=== PATIENT | female | born 1950 | race Caucasian/White ===

== ENCOUNTER → 2017-06-21 | Outpatient (CLI) | payer MEDICARE, OTHER ==
[2015-11-18 16:25] VITALS: BP 162/100
[~2017-06-21] MED LIST: CANA300T PO; COLE625T12 PO; HYDR-2678 PO; HYDR-2758 PO; LEVO150T5 PO; LISI40TA PO; NEBI10TA3 PO; ONDA4TAB10; TIZA4TAB PO
--- NOTE | 2017-06-21 12:08 | RAD ---
Bilateral lower extremity venous ultrasound, 06/21/2017: History: Bilateral leg edema Duplex evaluation of the deep veins in the lower extremities was performed including grayscale, color-flow and spectral Doppler analysis. The femoral and popliteal veins demonstrate normal compressibility and normal responses to distal augmentation maneuvers. Color imaging of those vessels shows no evidence of intraluminal clot. The visualized deep veins in both calves are patent. IMPRESSION: There is no sonographic evidence of deep vein thrombosis in either lower extremity.
--- NOTE | 2017-06-21 14:59 | RAD ---
Bilateral lower extremity arterial ultrasound, 06/21/2017: History: Leg pain and edema Duplex evaluation of the major arteries in both lower extremities was performed including grayscale, color-flow and spectral Doppler analysis. The right common femoral, superficial femoral and popliteal arteries demonstrate triphasic Doppler waveforms. No significant velocity acceleration is seen in these regions to suggest high-grade stenosis. No prominent plaque formation is identified. Patent posterior tibial, anterior tibial and peroneal arteries are present in the right lower leg demonstrating triphasic Doppler waveforms. The right dorsalis pedis artery demonstrates a good amplitude biphasic Doppler waveform. On the left, the common femoral and superficial femoral arteries demonstrate triphasic Doppler waveforms. No prominent plaque formation or velocity acceleration is seen in the left femoral or popliteal arteries. The left popliteal Doppler waveform is monophasic. In the left lower leg the posterior tibial artery is patent demonstrating a biphasic Doppler waveform. The left peroneal artery is patent with a monophasic Doppler waveform. The left anterior tibial and dorsalis pedis arteries are patent with good triphasic Doppler waveforms. IMPRESSION: No duplex evidence of high-grade arterial stenosis in either lower extremity.
== END | disposition home or self-care (01) ==
LOC: US 09:58
PROVIDERS: ATTEND Nurse Practitioner Adult Health
DX: I87.2 Venous insufficiency (chronic) (peripheral) (principal); M79.605 Pain in left leg; M79.604 Pain in right leg; R60.0 Localized edema; I10 Essential (primary) hypertension; E11.9 Type 2 diabetes mellitus without complications; E78.5 Hyperlipidemia, unspecified; E78.00 Pure hypercholesterolemia, unspecified
CPT/HCPCS: 93925; 93970

== ENCOUNTER 2018-05-28 10:08 | Inpatient (IN) | payer MEDICARE, OTHER ==
[~2018-05-28] VITALS: Ht 172.7 cm; Wt 111.8 kg
[2018-05-28] VITALS (16 sets, daily range): BP systolic 121–219; BP diastolic 58–78
[~2018-05-28 10:08] MED LIST changes: +HYDR-2155 PO; -HYDR-2758 PO
[2018-05-28] MEDS ORDERED: DEXTROSE 50% 25 GM / 50ML DISP.SYRIN. IV PRN (12:15)
[2018-05-28 12:26] LABS: BASO % 0 % (0-3); EOS # 0.1 x10^3/uL (0.0-0.7); EOS % 1 % (0-3); HEMATOCRIT 39.8 % (36.0-47.0); HEMOGLOBIN 13.6 g/dL (12.0-15.5); LYMPH # 1.4 x10^3/uL (1.0-4.8); LYMPH % 19 % (24-48); MEAN CORPUSCULAR HEMOGLOBIN 32 pg (25-35); MEAN CORPUSCULAR HGB CONC 34 g/dL (31-37); MEAN CORPUSCULAR VOLUME 93 fL (79-100); MONO # 0.5 x10^3/uL (0.0-1.1); MONO % 7 % (0-9); NEUT # 5.1 x10^3uL (1.8-7.7); NEUT % 73 % (31-73); PLATELET COUNT 162 x10^3/uL (140-400); RED BLOOD COUNT 4.27 x10^6/uL (3.50-5.40); RED CELL DISTRIBUTION WIDTH 12.3 % (11.5-14.5); WHITE BLOOD COUNT 7.1 x10^3/uL (4.0-11.0)
[2018-05-28 12:41] LABS: ALBUMIN 3.8 g/dL (3.4-5.0); ALBUMIN/GLOBULIN RATIO 0.9 (1.0-1.7); CALCIUM 9.7 mg/dL (8.5-10.1); CREATININE 0.8 mg/dL (0.6-1.0); GFR 71.3; TOTAL BILIRUBIN 0.4 mg/dL (0.2-1.0); TOTAL PROTEIN 7.9 g/dL (6.4-8.2)
[2018-05-28] MEDS ORDERED: VANCOMYCIN 2 GM in IV NORMAL SALINE 500ML 500 ML IV ONE (12:45)
[2018-05-28] MEDS ORDERED: HYDR-2145 PO (13:31)
[2018-05-28] MEDS ORDERED: LEVO150T5 PO (13:31)
[2018-05-28] MEDS: MINERAL OIL/PETROLATUM TOPICAL CREAM 113GM JAR. TP SCH ×2 (13:52→22:32)
[2018-05-28] MEDS: CLOTRIMAZOLE 1% TOPICAL CREAM 30GM TUBE. TP SCH ×2 (13:52→22:31)
[2018-05-28] MEDS: VANCOMYCIN PER PHARMACY MC PRN (14:03)
[2018-05-28 14:10] LABS: CLARITY,URINE HAZY; COLOR,URINE YELLOW
[2018-05-28 14:11] LABS: BACTERIA,URINE FEW /HPF (0-FEW); BILIRUBIN,URINE NEG (NEG); GLUCOSE,URINE >=1000 mg/dL (NEG); NITRITE,URINE NEG (NEG); SQUAMOUS EPITHELIAL CELL,UR FEW /LPF; UROBILINOGEN,URINE 0.2 mg/dL (0.2 mg/dL)
[2018-05-28] MEDS ORDERED: HYDROcodone/APAP 5/325MG 1 TAB TABLET PO PRN (14:30)
[2018-05-28] MEDS: HYDROcodone/APAP 5/325MG 1 TAB TABLET PO PRN ×3 (14:55→22:30)
[2018-05-28] MEDS: diphenhydrAMINE 50 MG/ML VIAL IVP PRN (15:36)
[2018-05-28] MEDS ORDERED: HYDROCODONE PO PRN (18:00)
[2018-05-28] MEDS ORDERED: ACETAMINOPHEN PO PRN (18:00)
[2018-05-28] MEDS ORDERED: ONDANSETRON ODT 4 MG TAB.RAPDIS PO PRN (18:30)
[2018-05-28] MEDS: INSULIN LISPRO 300 UNITS/3 ML INSULN.PEN. SQ SCH (18:42)
[2018-05-28] MEDS ORDERED: METOPROLOL TARTRATE 5 MG/5 ML VIAL. IV ONE (19:30)
[2018-05-28] MEDS: tiZANidine 4 MG TABLET. PO SCH ×2 (20:42→23:42)
[2018-05-28] MEDS: LACTOBACILLUS RHAMNOSUS GG 1 CAPSULE. PO SCH (22:30)
[2018-05-28] MEDS: APIXABAN 5 MG TABLET. PO SCH (22:31)
[2018-05-29] VITALS (8 sets, daily range): BP systolic 118–191; BP diastolic 55–82
[2018-05-29] MEDS ORDERED: VANCOMYCIN 1.75 GM in IV NORMAL SALINE 500ML 500 ML IV SCH (02:00)
[2018-05-29] MEDS: diphenhydrAMINE 50 MG/ML VIAL IVP PRN ×2 (02:03→21:29)
[2018-05-29] MEDS: LEVOTHYROXINE 150 MCG TABLET PO SCH (05:20)
[2018-05-29] MEDS: tiZANidine 4 MG TABLET. PO SCH ×5 (05:20→19:45)
[2018-05-29] MEDS: HYDROcodone/APAP 5/325MG 1 TAB TABLET PO PRN ×3 (05:21→19:45)
[2018-05-29 06:24] LABS: BASO % 0 % (0-3); EOS # 0.1 x10^3/uL (0.0-0.7); EOS % 1 % (0-3); HEMATOCRIT 40.5 % (36.0-47.0); HEMOGLOBIN 13.6 g/dL (12.0-15.5); LYMPH % 28 % (24-48); MEAN CORPUSCULAR HEMOGLOBIN 32 pg (25-35); MEAN CORPUSCULAR HGB CONC 34 g/dL (31-37); MEAN CORPUSCULAR VOLUME 94 fL (79-100); MONO # 0.5 x10^3/uL (0.0-1.1); MONO % 8 % (0-9); NEUT # 4.4 x10^3uL (1.8-7.7); NEUT % 63 % (31-73); PLATELET COUNT 179 x10^3/uL (140-400); RED BLOOD COUNT 4.31 x10^6/uL (3.50-5.40); RED CELL DISTRIBUTION WIDTH 12.6 % (11.5-14.5)
[2018-05-29 06:34] LABS: CALCIUM 8.9 mg/dL (8.5-10.1); CREATININE 0.9 mg/dL (0.6-1.0); GFR 62.3; POTASSIUM 3.7 mmol/L (3.5-5.1)
[2018-05-29] MEDS ORDERED: LEVOTHYROXINE SODIUM 150 MCG PO SCH (07:30)
[2018-05-29] MEDS: FUROSEMIDE 40 MG/4 ML VIAL IVP SCH (08:58)
[2018-05-29] MEDS: APIXABAN 5 MG TABLET. PO SCH ×2 (08:58→21:29)
[2018-05-29] MEDS: LACTOBACILLUS RHAMNOSUS GG 1 CAPSULE. PO SCH ×2 (09:00→21:29)
[2018-05-29] MEDS: NON FORMULARY ITEM (Canagliflozin (Invokana) 300 MG) PO SCH (09:01)
[2018-05-29] MEDS: MINERAL OIL/PETROLATUM TOPICAL CREAM 113GM JAR. TP SCH ×2 (09:12→21:34)
[2018-05-29] MEDS: CLOTRIMAZOLE 1% TOPICAL CREAM 30GM TUBE. TP SCH ×2 (09:12→21:34)
[2018-05-29] MEDS: INSULIN LISPRO 300 UNITS/3 ML INSULN.PEN. SQ SCH ×3 (09:12→17:00)
[2018-05-29 13:38] LABS: VANC TR 22.9 mcg/mL (10.0-20.0)
[2018-05-29] MEDS: VANCOMYCIN PER PHARMACY MC PRN (13:51)
[2018-05-29] MEDS: CARVEDILOL 6.25 MG TABLET PO SCH ×3 (16:48→21:30)
[2018-05-29] MEDS: TEMAZEPAM 15 MG CAPSULE PO SCH (21:29)
--- NOTE | 2018-05-29 22:35 | PN ---
DATE: SUBJECTIVE: A 67-year-old female in with cellulitis to her legs. The patient is resting fairly comfortably, making fairly good progress overall. She did have extreme blood pressure yesterday. Blood pressure was as high as 230 systolic, as a result of that, the pulse over 122. The patient did not have any particular chest pain with it, but was feeling a little bit of a headache and as a result of this, was placed on some IV metoprolol. The patient otherwise will continue to be monitored carefully on that issue. Blood pressure presently has come down to 165/65, respiratory rate 15, pulse 99, temperature of 98.4. The patient ____ medications. She has 1120 white blood cells in her urine. The patient's cardiac enzymes have been negative. We will continue to monitor the patient on her hypertensive urgency as well as cellulitis to her legs. PHYSICAL EXAMINATION: GENERAL: The patient is alert and oriented. LUNGS: Diminished throughout, but clear. CARDIOVASCULAR: Regular sinus rhythm. ABDOMEN: Soft, nontender, protuberant. EXTREMITIES: Less swollen, but still markedly erythematous consistent with her cellulitis to her legs. IMPRESSION: 1. Cellulitis to the legs. 2. Hypertensive emergency. 3. Type 2 diabetes. PLAN: Continue to monitor her accordingly, IV antibiotic therapy. Make further evaluation. She may have had a red man syndrome with her situation there. PÉREZ MCCANN MD DR: LYDIA/lashay JOB#: [id number] / [id number]
[2018-05-29] MEDS: VANCOMYCIN 1.25 GM in IV NORMAL SALINE 250ML 250 ML IV SCH (22:36)
[2018-05-30] MEDS: tiZANidine 4 MG TABLET. PO SCH ×7 (00:31→23:27)
[2018-05-30] MEDS: HYDROcodone/APAP 5/325MG 1 TAB TABLET PO PRN ×4 (05:14→23:26)
[2018-05-30] MEDS: LEVOTHYROXINE 150 MCG TABLET PO SCH (05:15)
[2018-05-30 05:31] VITALS: BP 164/70
[2018-05-30 06:52] LABS: CALCIUM 8.9 mg/dL (8.5-10.1); CREATININE 0.8 mg/dL (0.6-1.0); GFR 71.3; POTASSIUM 3.7 mmol/L (3.5-5.1)
[2018-05-30] MEDS: APIXABAN 5 MG TABLET. PO SCH ×2 (10:07→20:03)
[2018-05-30] MEDS: LACTOBACILLUS RHAMNOSUS GG 1 CAPSULE. PO SCH ×2 (10:07→20:02)
[2018-05-30] MEDS: NON FORMULARY ITEM (Canagliflozin (Invokana) 300 MG) PO SCH (10:07)
[2018-05-30] MEDS: CARVEDILOL 6.25 MG TABLET PO SCH (10:08)
[2018-05-30] MEDS: FUROSEMIDE 40 MG/4 ML VIAL IVP SCH (10:09)
[2018-05-30] MEDS: INSULIN LISPRO 300 UNITS/3 ML INSULN.PEN. SQ SCH ×3 (10:20→17:44)
[2018-05-30] MEDS: MINERAL OIL/PETROLATUM TOPICAL CREAM 113GM JAR. TP SCH ×2 (10:24→20:02)
[2018-05-30] MEDS: diphenhydrAMINE 50 MG/ML VIAL IVP PRN (10:28)
[2018-05-30] MEDS: CLOTRIMAZOLE 1% TOPICAL CREAM 30GM TUBE. TP SCH ×2 (10:29→20:01)
[2018-05-30] MEDS: VANCOMYCIN 1.25 GM in IV NORMAL SALINE 250ML 250 ML IV SCH ×2 (10:36→22:16)
[2018-05-30 10:41] VITALS: BP 198/84
[2018-05-30 15:53] VITALS: BP 116/57
[2018-05-30] MEDS: CARVEDILOL 12.5 MG TABLET PO SCH (17:40)
[2018-05-30 19:57] VITALS: BP 119/66
[2018-05-30] MEDS: TEMAZEPAM 15 MG CAPSULE PO SCH (20:02)
--- NOTE | 2018-05-30 20:26 | PN ---
DATE: SUBJECTIVE: A 67-year-old female in with bilateral cellulitis of her legs as well as hypertensive urgency. The patient is still being monitored on that blood pressure adjusting her medications, bounced back up to 198/84, respiratory rate 20, pulse 100, afebrile. The patient is being adjusted on her medications there. She continues with IV vancomycin. The cultures of her show many gram-negative rods and the discharge from her legs being evaluated there. OBJECTIVE: GENERAL: Slight headache. LUNGS: Diminished. CARDIOVASCULAR: Stable. ABDOMEN: Soft, nontender. EXTREMITIES: Improved with decreased redness and wound care has evaluated the patient there. IMPRESSION: Bilateral lower leg cellulitis with hypertensive urgency, type 2 diabetes, obesity. PLAN: Continue to monitor the patient accordingly to make further evaluation. Continue on IV antibiotics and adjust her blood pressure medications. PÉREZ MCCANN MD DR: LYDIA/lashay JOB#: [id number] / [id number]
[2018-05-30 21:54] LABS: VANC TR 19.8 mcg/mL (10.0-20.0)
[2018-05-30 22:33] VITALS: BP 113/64
[2018-05-31 05:12] VITALS: BP 157/77
[2018-05-31] MEDS: HYDROcodone/APAP 5/325MG 1 TAB TABLET PO PRN ×2 (05:19→11:50)
[2018-05-31] MEDS: LEVOTHYROXINE 150 MCG TABLET PO SCH (05:19)
[2018-05-31] MEDS: tiZANidine 4 MG TABLET. PO SCH ×3 (05:19→11:49)
[2018-05-31] MEDS: APIXABAN 5 MG TABLET. PO SCH (08:23)
[2018-05-31] MEDS: LACTOBACILLUS RHAMNOSUS GG 1 CAPSULE. PO SCH (08:23)
[2018-05-31] MEDS: CARVEDILOL 12.5 MG TABLET PO SCH (08:24)
[2018-05-31] MEDS: FUROSEMIDE 40 MG/4 ML VIAL IVP SCH (08:25)
[2018-05-31] MEDS: NON FORMULARY ITEM (Canagliflozin (Invokana) 300 MG) PO SCH (08:27)
[2018-05-31] MEDS: CLOTRIMAZOLE 1% TOPICAL CREAM 30GM TUBE. TP SCH (08:37)
[2018-05-31] MEDS: MINERAL OIL/PETROLATUM TOPICAL CREAM 113GM JAR. TP SCH (08:37)
[2018-05-31] MEDS: INSULIN LISPRO 300 UNITS/3 ML INSULN.PEN. SQ SCH ×2 (08:43→11:55)
[2018-05-31] MEDS ORDERED: MINERAL OIL TP (09:36)
[2018-05-31] MEDS ORDERED: CLOT15CR4 TP (09:36)
[2018-05-31] MEDS ORDERED: TEMA15CA6 PO (09:36)
[2018-05-31] MEDS ORDERED: FURO-68 PO (09:36)
[2018-05-31] MEDS ORDERED: HYDR-2155 PO (09:36)
[2018-05-31] MEDS ORDERED: HYDR-2869 PO (09:36)
[2018-05-31] MEDS ORDERED: CARV12.547 PO (09:36)
[2018-05-31] MEDS ORDERED: APIX5TAB3 PO (09:36)
[2018-05-31] MEDS ORDERED: PETROLATUM TP (09:36)
[2018-05-31] MEDS: VANCOMYCIN 1.25 GM in IV NORMAL SALINE 250ML 250 ML IV SCH (10:01)
[2018-05-31] MEDS ORDERED: TIZA4TAB PO (10:02)
[2018-05-31] MEDS ORDERED: SULF1TAB24 PO (10:02)
[2018-05-31 11:02] VITALS: BP 102/56
[2018-05-31] MEDS ORDERED: LEVO150T5 PO (11:26)
[2018-05-31] MEDS ORDERED: LEVO500T59 PO (11:54)
--- NOTE | 2018-06-13 13:10 | DS ---
DATE OF DISCHARGE: 05/31/2018 HOSPITAL COURSE: The patient is a 67-year-old female came into the hospital because of extremely elevated hypertensive urgency as well as bilateral lower leg cellulitis. The patient also noted to have an increased pulse rate of 100. The patient had diabetes, multiple risk factors, had failed outpatient therapy. As a result of this, the patient was admitted to the hospital for further evaluation and treatment. Her blood sugars were in the low 200s. The patient had white blood cells per high powered field. The patient made excellent progress during the rest of her hospitalization. Cultures of her leg demonstrated both pseudomonas and E. coli on her swabs of her legs. The patient made good progress during the rest of her hospitalization. She was kept in Unna boots, antibiotic therapy. She will be discharged home. Follow up as an outpatient and make further evaluation on her as indicated as an outpatient. She will be on a diabetic diet, decreased activity. Also, try to get her into the pain clinic and make further evaluation on her as indicated per those results. Also, bilateral leg cellulitis, type 2 diabetes, poorly controlled; morbid obesity, urinary tract infection. PLAN: As above. PÉREZ MCCANN MD DR: LYDIA/lashay JOB#: [id number] / [id number]
--- NOTE | 2018-06-13 14:47 | EKG ---
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
== END 2018-05-31 13:50 | disposition home health service (06) | DRG 603 ==
LOC: ICU 11:21 → 1 SOUTH 05-29 16:56
PROVIDERS: ADMIT Family Medicine; ATTEND Family Medicine
DX: L03.115 Cellulitis of right lower limb (principal); I16.1 Hypertensive emergency; N39.0 Urinary tract infection, site not specified; R65.10 Systemic inflammatory response syndrome (SIRS) of non-infectious origin without acute organ dysfunction; L03.116 Cellulitis of left lower limb; E11.9 Type 2 diabetes mellitus without complications; E66.9 Obesity, unspecified; Z68.37 Body mass index [BMI] 37.0-37.9, adult; B96.5 Pseudomonas (aeruginosa) (mallei) (pseudomallei) as the cause of diseases classified elsewhere; B96.20 Unspecified Escherichia coli [E. coli] as the cause of diseases classified elsewhere; E11.65 Type 2 diabetes mellitus with hyperglycemia; E66.01 Morbid (severe) obesity due to excess calories
CPT/HCPCS: 36415; 80048; 80053; 80202; 81001; 82550; 82947; 83605; 84484; 85025; 87071; 87075; 87086; 87186; 87641; 93005; J1200; J1815; J1940; J3370; J3490; J7040; J7050

== ENCOUNTER 2018-11-01 10:27 | Inpatient (IN) | payer MEDICARE, OTHER ==
[~2018-11-01] VITALS: Ht 165.1 cm; Wt 108.4 kg
[~2018-11-01 10:27] MED LIST changes: +APIX5TAB3 PO; +CARV12.547 PO; +CLOT15CR4 TP; +FURO-68 PO; +HYDR-2145 PO; +HYDR-2869 PO; +LEVO500T59 PO; +MINERAL OIL TP; +PETROLATUM TP; +SULF1TAB24 PO; +TEMA15CA6 PO; -TIZA4TAB PO; +TIZA4TAB2 PO
[2018-11-01] MEDS ORDERED: VANCOMYCIN PER PHARMACY MC STA ×2 (10:52→11:03)
[2018-11-01] MEDS ORDERED: IV NORMAL SALINE 1,000ML 1,710 ML IV SCH (11:00)
[2018-11-01] MEDS ORDERED: IV NORMAL SALINE 50ML 50 ML ONE (11:04)
[2018-11-01] MEDS ORDERED: cefTRIAXone SODIUM 1 GM VIAL ONE (11:04)
--- NOTE | 2018-11-01 11:05 | PHYS DOC ---
Past History Past Medical History: Arthritis, Diabetes, Fibromyalgia, Hypertension, Hypothyroid Past Surgical History: , Tonsillectomy Smoking: Non-smoker Alcohol Use: None Drug Use: None Adult General Chief Complaint Chief Complaint: LOWEREXTREMITY INJURY HPI HPI Patient is a 68-year-old female presents complaining of right leg wounds. These started approximately 2 weeks ago as little red spots that subsequently developed pustules and his gotten worse over time so that there is bleeding and drainage. She has been using Lac-Hydrin to keep the bilateral legs moist without any significant improvement. No fever. Denies any trauma. Nothing seems to make the symptoms better or worse. Symptoms are moderate in intensity. [] Review of Systems Review of Systems Constitutional: Denies fever or chills [] Eyes: Denies change in visual acuity, redness, or eye pain [] HENT: Denies nasal congestion or sore throat [] Respiratory: Denies cough or shortness of breath [] Cardiovascular: No chest pain or palpitations[] GI: Denies abdominal pain, nausea, vomiting, bloody stools or diarrhea [] : Denies dysuria or hematuria [] Musculoskeletal: She also notes a left sided back pain, worse with movement, no improvement with her usual pain medicines. She has a long-standing history of back issues to include surgery. No worsening with exertion. No worsening with deep breaths[] Integument: See history of present illness[] Neurologic: Denies headache, focal weakness or sensory changes [] Endocrine: Denies polyuria or polydipsia [] All other systems were reviewed and found to be within normal limits, except as documented in this note. Current Medications Current Medications Current Medications Medications (Trade) Dose Ordered Sig/Deb Start Time Stop Time Status Last Admin Dose Admin Ceftriaxone Sodium 1 gm/ Sodium Chloride 50 ml @ 100 mls/hr 1X ONCE 11/01/18 11:00 11/01/18 11:29 UNV Sodium Chloride 1,710 ml @ 1,710 mls/hr Q1H 11/01/18 11:00 UNV Vancomycin HCl (Vanco Per Pharmacy) 1 each 1X STAT 11/01/18 10:52 11/01/18 10:53 UNV Allergies Allergies Allergies Coded Allergies Type Severity Reaction Last Updated Verified Erythromycin Base Allergy Unknown 07/10/13 Yes cyclobenzaprine HCl Allergy Unknown 4/2/14 Yes Physical Exam Physical Exam Constitutional: Well developed, well nourished, no acute distress, non-toxic appearance. [] HENT: Normocephalic, atraumatic, bilateral external ears normal, oropharynx moist, no oral exudates, nose normal. [] Eyes: PERRLA, EOMI, conjunctiva normal, no discharge. [] Neck: Normal range of motion, no tenderness, supple, no stridor. [] Cardiovascular:Heart rate regular rhythm, no murmur [] Lungs & Thorax: Bilateral breath sounds clear to auscultation her left side of the thoracic region has tenderness to palpation which re-creates the pain in the posterior midclavicular line in the mid back. There is no crepitus. No flail segment noted. No subcutaneous emphysema. [] Abdomen: Bowel sounds normal, soft, no tenderness, no masses, no pulsatile masses. [] Skin: Warm, see extremity below. [] Back:see thorax above, no CVA tenderness. [] Extremities: Right lower extremity has one pustule with an erythematous ring towards the proximal aspect, there is diffuse discoloration, excoriations, bleeding, erythema present in the anterior calf region. Patient is distally neurovascularly symmetric. The left lower extremity has skin stasis changes in the calf region without any of these pustules and not as significant erythema. The upper extremities show: No tenderness, no cyanosis, no clubbing, ROM intact, no edema. [] Neurologic: Alert and oriented X 3, normal motor function, normal sensory function, no focal deficits noted. [] Psychologic: Affect normal, judgement normal, mood normal. [] Current Patient Data Vital Signs Vital Signs Date Time Temp Pulse Resp B/P (MAP) Pulse Ox O2 Delivery O2 Flow Rate FiO2 11/01/18 10:51 98.4 127 22 95 Room Air 11/01/18 10:50 165/100 (121) EKG EKG EKG shows a sinus tachycardia at 112 bpm, left axis, QTC of 452 ms, left anterior fascicular block, no ST elevation. Interpreted by me at 1209[] Radiology/Procedures Radiology/Procedures PROCEDURE: CHEST PA & LATERAL TIBIA FIBULA RIGHT, CHEST PA LATERAL History: Tachycardia, back pain.. Right leg infection Two-view chest No prior study for comparison. Heart size is not enlarged. No evidence of pneumothorax. No pleural effusion. No focal infiltrate. Bones appear intact. Degenerative spondylosis of lower spine. IMPRESSION: No acute infiltrate is identified. Two-view right tibia fibula No evidence of acute fracture or aggressive bone destruction. Mild soft tissue irregularity anterior to the mid tibia. Soft tissue calcifications are seen. Severe degenerative changes at the partially seen knee. IMPRESSION: No acute bone abnormality [] Course & Med Decision Making Course & Med Decision Making Pertinent Labs and Imaging studies reviewed. (See chart for details) ED course: Patient arrived, was placed in bed, and tolerated exam well. IV access was established, fluids and antibiotics were started. X-rays were taken of her leg along with laboratory testing being obtained. After the return of the imaging and laboratory studies these were discussed with the patient who voiced understanding. Consultation was made with her primary care physician who graciously admitted her. She was admitted in improved condition. Medical decision makin-year-old female with right leg infection. She has an elevated glucose and elevated lactate. She does not appear to be in diabetic ketoacidosis. This may be early sepsis.[] Dragon Disclaimer Dragon Disclaimer This electronic medical record was generated, in whole or in part, using a voice recognition dictation system. Departure Departure: Impression: Primary Impression: Infected superficial injury of right leg Disposition: ADMITTED INPATIENT Admitting Physician: Andrew Muñoz Condition: IMPROVED Referrals: ANDREW MUÑOZ MD (PCP) Problem Qualifiers Primary Impression: Infected superficial injury of right leg Encounter type: initial encounter Qualified Codes: S80.921A - Unspecified superficial injury of right lower leg, initial encounter; L08.9 - Local infection of the skin and subcutaneous tissue, unspecified YUE MCMAHON DO Nov 01, 2018 11:05
[2018-11-01] MEDS ORDERED: DIPHTH,PERTUSS(ACELL),TET TOX 0.5 ML DISP.SYRIN. VAX IM ONE (11:30)
[2018-11-01] MEDS ORDERED: VANCOMYCIN 2 GM in IV NORMAL SALINE 500ML 500 ML IV ONE (11:30)
[2018-11-01 11:33] LABS: BASO % 1 % (0-3); EOS # 0.1 x10^3/uL (0.0-0.7); EOS % 1 % (0-3); HEMATOCRIT 43.3 % (36.0-47.0); HEMOGLOBIN 14.5 g/dL (12.0-15.5); LYMPH # 1.5 x10^3/uL (1.0-4.8); LYMPH % 20 % (24-48); MEAN CORPUSCULAR HEMOGLOBIN 31 pg (25-35); MEAN CORPUSCULAR HGB CONC 34 g/dL (31-37); MEAN CORPUSCULAR VOLUME 93 fL (79-100); MONO # 0.5 x10^3/uL (0.0-1.1); MONO % 6 % (0-9); NEUT # 5.7 x10^3uL (1.8-7.7); NEUT % 73 % (31-73); PLATELET COUNT 259 x10^3/uL (140-400); RED BLOOD COUNT 4.65 x10^6/uL (3.50-5.40); RED CELL DISTRIBUTION WIDTH 12.7 % (11.5-14.5); WHITE BLOOD COUNT 7.8 x10^3/uL (4.0-11.0)
[2018-11-01 11:44] LABS: ALBUMIN 4.2 g/dL (3.4-5.0); ALBUMIN/GLOBULIN RATIO 0.9 (1.0-1.7); CALCIUM 9.8 mg/dL (8.5-10.1); POTASSIUM 3.7 mmol/L (3.5-5.1); TOTAL BILIRUBIN 0.3 mg/dL (0.2-1.0); TOTAL PROTEIN 8.8 g/dL (6.4-8.2)
[2018-11-01 11:52] LABS: CLARITY,URINE CLEAR; COLOR,URINE STRAW
[2018-11-01 11:53] LABS: BACTERIA,URINE 0 /HPF (0-FEW); BILIRUBIN,URINE NEG (NEG); GLUCOSE,URINE >=1000 mg/dL (NEG); NITRITE,URINE NEG (NEG); RBC,URINE 0 /HPF (0-2); SQUAMOUS EPITHELIAL CELL,UR FEW /LPF; UROBILINOGEN,URINE 0.2 mg/dL (0.2 mg/dL); WBC,URINE OCC /HPF (0-4)
--- NOTE | 2018-11-01 12:10 | RAD ---
TIBIA FIBULA RIGHT, CHEST PA LATERAL History: Tachycardia, back pain.. Right leg infection Two-view chest No prior study for comparison. Heart size is not enlarged. No evidence of pneumothorax. No pleural effusion. No focal infiltrate. Bones appear intact. Degenerative spondylosis of lower spine. IMPRESSION: No acute infiltrate is identified. Two-view right tibia fibula No evidence of acute fracture or aggressive bone destruction. Mild soft tissue irregularity anterior to the mid tibia. Soft tissue calcifications are seen. Severe degenerative changes at the partially seen knee. IMPRESSION: No acute bone abnormality Electronically signed by: Chaka Francisco MD (11/01/2018 12:07 PM) [id number]
[2018-11-01] MEDS ORDERED: IV NORMAL SALINE 1,000ML 1,000 ML IV SCH (12:26)
[2018-11-01] MEDS ORDERED: ACETAMINOPHEN 325 MG TABLET PO PRN (12:30)
[2018-11-01] MEDS ORDERED: ONDANSETRON PF 4 MG/2 ML VIAL. IV PRN (12:30)
[2018-11-01 12:53] LABS: SEDIMENTATION RATE 90 (0-25)
[2018-11-01] MEDS ORDERED: MULT-697 PO (13:23)
[2018-11-01] MEDS ORDERED: KRIL500C PO (13:23)
[2018-11-01] MEDS ORDERED: CYAN500011 PO (13:23)
[2018-11-01] MEDS ORDERED: GABA600T7 PO (13:23)
[2018-11-01] MEDS ORDERED: CBD OIL (13:23)
[2018-11-01] MEDS ORDERED: LACT1CAP6 PO (13:23)
[2018-11-01] MEDS ORDERED: HYDR-2763 PO (13:24)
[2018-11-01] MEDS ORDERED: DEXTROSE 50% 25 GM / 50ML DISP.SYRIN. IV PRN (13:45)
[2018-11-01] MEDS: HYDROcodone/APAP 7.5/325MG 1 TAB TABLET PO PRN ×2 (13:52→20:40)
--- NOTE | 2018-11-01 14:04 | EKG ---
[address] [address] Test Date: 2018-11-01 Test Time: 12:05:39 Pat Name: AGATHA SOLIZ Department: Room: Gender: F Scourer: : 1950 Requested By: YUE MCMAHON Order Number: [id number] Reading MD: Measurements Intervals [place] Rate: 112 P: 44 UT: 162 QRS: -31 QRSD: 102 T: 90 QT: 330 QTc: 452 Interpretive Statements SINUS TACHYCARDIA ABNORMAL LEFT AXIS DEVIATION R-S TRANSITION ZONE IN V LEADS DISPLACED TO THE LEFT LEFT ANTERIOR FASCICULAR BLOCK LVH WITH REPOLARIZATION ABNORMALITY ABNORMAL ECG RI6.01 No previous ECG available for comparison
[2018-11-01] MEDS ORDERED: METOPROLOL TARTRATE 5 MG/5 ML VIAL. IV STA (15:54)
[2018-11-01 15:56] VITALS: BP 220/86
[2018-11-01] MEDS ORDERED: METOPROLOL TARTRATE 5 MG/5 ML VIAL. IV ONE (16:00)
[2018-11-01] MEDS: INSULIN LISPRO 300 UNITS/3 ML INSULN.PEN. SQ SCH (17:28)
[2018-11-01 18:38] VITALS: BP 196/76
[2018-11-01] MEDS ORDERED: VANCOMYCIN IV ONE (18:45)
[2018-11-01] MEDS ORDERED: LABETALOL 100 MG/20 ML VIAL. IV PRN (18:45)
[2018-11-01] MEDS ORDERED: NORMAL SALINE IV ONE (18:45)
[2018-11-01] MEDS: METOPROLOL TART IMMED RELEASE 50 MG TABLET PO SCH ×2 (18:48→20:22)
[2018-11-01] MEDS: LACTOBACILLUS RHAMNOSUS GG 1 CAPSULE. PO SCH (20:22)
[2018-11-01] MEDS: GABAPENTIN 300 MG CAPSULE. PO SCH (20:22)
[2018-11-01] MEDS: VANCOMYCIN PER PHARMACY MC PRN (21:43)
[2018-11-01 22:34] VITALS: BP 188/73
[2018-11-01] MEDS: tiZANidine 4 MG TABLET. PO PRN (22:46)
[2018-11-01] MEDS: HEPARIN for SUB-Q USE 5,000 UNIT/ML VIAL. SQ SCH (22:47)
[2018-11-01 23:08] VITALS: BP 95/43
[2018-11-01 23:15] VITALS: BP 139/75
[2018-11-01] MEDS: VANCOMYCIN 1.5 GM in IV NORMAL SALINE 500ML 500 ML IV SCH (23:24)
[2018-11-01 23:45] VITALS: BP 159/58
[2018-11-02] VITALS (7 sets, daily range): BP systolic 118–184; BP diastolic 48–83
[2018-11-02] MEDS: HYDROcodone/APAP 7.5/325MG 1 TAB TABLET PO PRN ×4 (02:51→23:51)
[2018-11-02] MEDS: HEPARIN for SUB-Q USE 5,000 UNIT/ML VIAL. SQ SCH ×3 (05:43→22:35)
[2018-11-02] MEDS: LEVOTHYROXINE 150 MCG TABLET PO SCH (05:43)
[2018-11-02 06:33] LABS: CALCIUM 9.1 mg/dL (8.5-10.1); CREATININE 0.9 mg/dL (0.6-1.0); GFR 62.1; POTASSIUM 4.1 mmol/L (3.5-5.1)
[2018-11-02 06:34] LABS: BASO # 0.1 x10^3/uL (0.0-0.2); BASO % 1 % (0-3); EOS # 0.1 x10^3/uL (0.0-0.7); EOS % 1 % (0-3); HEMATOCRIT 40.8 % (36.0-47.0); HEMOGLOBIN 13.5 g/dL (12.0-15.5); LYMPH # 2.1 x10^3/uL (1.0-4.8); LYMPH % 26 % (24-48); MEAN CORPUSCULAR HEMOGLOBIN 31 pg (25-35); MEAN CORPUSCULAR HGB CONC 33 g/dL (31-37); MEAN CORPUSCULAR VOLUME 94 fL (79-100); MONO # 0.5 x10^3/uL (0.0-1.1); MONO % 7 % (0-9); NEUT # 5.3 x10^3uL (1.8-7.7); NEUT % 66 % (31-73); PLATELET COUNT 244 x10^3/uL (140-400); RED BLOOD COUNT 4.32 x10^6/uL (3.50-5.40); RED CELL DISTRIBUTION WIDTH 12.8 % (11.5-14.5); WHITE BLOOD COUNT 8.1 x10^3/uL (4.0-11.0)
[2018-11-02] MEDS: tiZANidine 4 MG TABLET. PO PRN ×3 (07:26→22:35)
[2018-11-02] MEDS: INSULIN LISPRO 300 UNITS/3 ML INSULN.PEN. SQ SCH ×3 (08:14→17:03)
[2018-11-02] MEDS: Canagliflozin (Invokana) 300 MG) PO SCH (09:03)
[2018-11-02] MEDS: LACTOBACILLUS RHAMNOSUS GG 1 CAPSULE. PO SCH ×2 (09:03→20:27)
[2018-11-02] MEDS: MULTIVITAMIN with MINERAL TABLET. PO SCH (09:03)
[2018-11-02] MEDS: OMEGA-3 FATTY ACIDS/FISH OIL 1,000 MG CAPSULE. PO SCH (09:03)
[2018-11-02] MEDS: GABAPENTIN 300 MG CAPSULE. PO SCH ×3 (09:05→20:26)
[2018-11-02] MEDS: CYANOCOBALAMIN (VITAMIN B-12) 1,000 MCG TABLET. PO SCH (09:05)
[2018-11-02] MEDS: FUROSEMIDE 40 MG TABLET PO SCH (09:06)
[2018-11-02] MEDS: METOPROLOL TART IMMED RELEASE 50 MG TABLET PO SCH ×2 (09:06→20:27)
[2018-11-02] MEDS: VANCOMYCIN 1.5 GM in IV NORMAL SALINE 500ML 500 ML IV SCH ×2 (11:27→23:37)
[2018-11-02 23:28] LABS: VANC TR 20.1 mcg/mL (10.0-20.0)
[2018-11-03 03:45] VITALS: BP 198/85
[2018-11-03] MEDS: HEPARIN for SUB-Q USE 5,000 UNIT/ML VIAL. SQ SCH ×3 (06:00→22:16)
[2018-11-03] MEDS: LEVOTHYROXINE 150 MCG TABLET PO SCH (06:24)
[2018-11-03] MEDS: tiZANidine 4 MG TABLET. PO PRN ×3 (06:24→19:00)
[2018-11-03 06:38] VITALS: BP 193/88
[2018-11-03] MEDS: Canagliflozin (Invokana) 300 MG) PO SCH (08:02)
[2018-11-03] MEDS: CYANOCOBALAMIN (VITAMIN B-12) 1,000 MCG TABLET. PO SCH (08:03)
[2018-11-03] MEDS: LACTOBACILLUS RHAMNOSUS GG 1 CAPSULE. PO SCH ×2 (08:03→20:22)
[2018-11-03] MEDS: METOPROLOL TART IMMED RELEASE 50 MG TABLET PO SCH ×2 (08:03→20:23)
[2018-11-03] MEDS: GABAPENTIN 300 MG CAPSULE. PO SCH ×3 (08:04→20:23)
[2018-11-03] MEDS: OMEGA-3 FATTY ACIDS/FISH OIL 1,000 MG CAPSULE. PO SCH (08:04)
[2018-11-03] MEDS: FUROSEMIDE 40 MG TABLET PO SCH (08:04)
[2018-11-03] MEDS: INSULIN LISPRO 300 UNITS/3 ML INSULN.PEN. SQ SCH ×3 (08:05→17:56)
[2018-11-03] MEDS: MULTIVITAMIN with MINERAL TABLET. PO SCH (08:05)
[2018-11-03] MEDS: DOCUSATE SODIUM 100 MG CAPSULE PO PRN (08:06)
[2018-11-03] MEDS: HYDROcodone/APAP 7.5/325MG 1 TAB TABLET PO PRN ×2 (08:20→19:00)
[2018-11-03] MEDS ORDERED: VANCOMYCIN 1.25 GM in IV NORMAL SALINE 250ML 250 ML IV SCH (11:00)
[2018-11-03] MEDS: VANCOMYCIN PER PHARMACY MC PRN (12:27)
[2018-11-03] MEDS: LISINOPRIL 20 MG TABLET PO SCH (12:42)
[2018-11-03 19:52] VITALS: BP 135/69
[2018-11-04 00:02] VITALS: BP 124/51
[2018-11-04] MEDS: tiZANidine 4 MG TABLET. PO PRN ×2 (02:35→07:30)
[2018-11-04] MEDS: HYDROcodone/APAP 7.5/325MG 1 TAB TABLET PO PRN ×2 (02:38→07:30)
[2018-11-04 05:45] VITALS: BP 109/47
[2018-11-04] MEDS: LEVOTHYROXINE 150 MCG TABLET PO SCH (05:47)
[2018-11-04] MEDS: HEPARIN for SUB-Q USE 5,000 UNIT/ML VIAL. SQ SCH (06:00)
[2018-11-04 06:54] LABS: BASO % 1 % (0-3); EOS # 0.1 x10^3/uL (0.0-0.7); EOS % 2 % (0-3); HEMATOCRIT 37.8 % (36.0-47.0); HEMOGLOBIN 12.7 g/dL (12.0-15.5); LYMPH # 1.5 x10^3/uL (1.0-4.8); LYMPH % 25 % (24-48); MEAN CORPUSCULAR HEMOGLOBIN 32 pg (25-35); MEAN CORPUSCULAR HGB CONC 34 g/dL (31-37); MEAN CORPUSCULAR VOLUME 94 fL (79-100); MONO # 0.5 x10^3/uL (0.0-1.1); MONO % 8 % (0-9); NEUT # 3.9 x10^3uL (1.8-7.7); NEUT % 64 % (31-73); PLATELET COUNT 196 x10^3/uL (140-400); RED BLOOD COUNT 4.01 x10^6/uL (3.50-5.40); RED CELL DISTRIBUTION WIDTH 12.9 % (11.5-14.5); WHITE BLOOD COUNT 6.1 x10^3/uL (4.0-11.0)
[2018-11-04] MEDS ORDERED: VANCOMYCIN 1.25 GM in IV NORMAL SALINE 250ML 250 ML IV SCH (07:00)
[2018-11-04 07:18] LABS: ALBUMIN 3.6 g/dL (3.4-5.0); ALBUMIN/GLOBULIN RATIO 0.9 (1.0-1.7); CALCIUM 8.9 mg/dL (8.5-10.1); CREATININE 1.1 mg/dL (0.6-1.0); GFR 49.2; POTASSIUM 3.9 mmol/L (3.5-5.1); TOTAL BILIRUBIN 0.5 mg/dL (0.2-1.0); TOTAL PROTEIN 7.6 g/dL (6.4-8.2)
[2018-11-04] MEDS: MULTIVITAMIN with MINERAL TABLET. PO SCH (08:09)
[2018-11-04] MEDS: GABAPENTIN 300 MG CAPSULE. PO SCH (08:09)
[2018-11-04] MEDS: FUROSEMIDE 40 MG TABLET PO SCH (08:09)
[2018-11-04] MEDS: CYANOCOBALAMIN (VITAMIN B-12) 1,000 MCG TABLET. PO SCH (08:09)
[2018-11-04] MEDS: Canagliflozin (Invokana) 300 MG) PO SCH (08:10)
[2018-11-04] MEDS: OMEGA-3 FATTY ACIDS/FISH OIL 1,000 MG CAPSULE. PO SCH (08:10)
[2018-11-04] MEDS: LACTOBACILLUS RHAMNOSUS GG 1 CAPSULE. PO SCH (08:10)
[2018-11-04] MEDS: DOCUSATE SODIUM 100 MG CAPSULE PO PRN (08:10)
[2018-11-04] MEDS: INSULIN LISPRO 300 UNITS/3 ML INSULN.PEN. SQ SCH ×2 (08:11→12:16)
[2018-11-04] MEDS: METOPROLOL TART IMMED RELEASE 50 MG TABLET PO SCH (09:00)
[2018-11-04] MEDS: LISINOPRIL 20 MG TABLET PO SCH (09:00)
[2018-11-04] MEDS ORDERED: VANC1VIA3 MC (11:51)
[2018-11-04] MEDS ORDERED: METO50TA6 PO (11:51)
[2018-11-04 12:17] VITALS: BP 153/72
--- NOTE | 2018-11-04 18:51 | DS ---
DATE OF DISCHARGE: 11/04/2018 HOSPITAL COURSE: A 68-year-old female came in with cellulitis to the right lower leg, have been unsuccessful as outpatient with oral antibiotics. The patient's sed rate was over 90. The patient also was a diabetic. The patient also had mild protein malnutrition as well as decreased renal function. The patient made good progress during the rest of her hospitalization and continued her IV antibiotic therapy, placement of PICC line, to get that as an outpatient IV antibiotic therapy. Staph aureus was found in the wound. The wound did show some signs of improvement. IMPRESSION: Cellulitis to the right lower leg, type 2 diabetes, morbid obesity, mild protein malnutrition. PLAN: Continue to monitor the patient and continue on IV antibiotic therapy as an outpatient. PÉREZ MCCANN MD DR: LYDIA/lashay JOB#: [id number] / [id number]
== END 2018-11-04 14:03 | disposition home or self-care (01) | DRG 603 ==
LOC: ER 10:27 → ICU 12:32
PROVIDERS: ADMIT Family Medicine; ATTEND Family Medicine
PROC: 02HV33Z Insertion of Infusion Device into Superior Vena Cava, Percutaneous Approach (ICD-10-PCS; principal; 2018-11-03)
DX: L03.115 Cellulitis of right lower limb (principal); E44.1 Mild protein-calorie malnutrition; I10 Essential (primary) hypertension; E03.9 Hypothyroidism, unspecified; M79.7 Fibromyalgia; E66.01 Morbid (severe) obesity due to excess calories; E11.9 Type 2 diabetes mellitus without complications; N28.9 Disorder of kidney and ureter, unspecified; Z68.39 Body mass index [BMI] 39.0-39.9, adult
CPT/HCPCS: 36415; 36569; 71046; 73590; 80048; 80053; 80202; 81001; 82947; 83605; 84484; 85025; 85651; 86140; 87040; 87070; 87186; 87641; 90471; 90715; 93005; 96365; 96366; 96368; J0696; J1644; J1815; J1956; J3010; J3370; J3490; J7040; J7050; 99285-25; J7030

== ENCOUNTER 2019-12-28 12:26 | Inpatient (IN) | payer MEDICARE, OTHER ==
[2019-12-28] VITALS (8 sets, daily range): BP systolic 103–148; BP diastolic 48–67
[~2019-12-28] VITALS: Ht 172.7 cm; Wt 110.0 kg
[~2019-12-28 12:26] MED LIST changes: +CBD OIL; +CLOT15CR23 TP; -CLOT15CR4 TP; +CYAN500011 PO; +GABA600T7 PO; +HYDR-2763 PO; +KRIL500C PO; +LACT1CAP6 PO; +METO50TA6 PO; +MULT-697 PO; +VANC1VIA3 MC
[2019-12-28] MEDS ORDERED: IV NORMAL SALINE 1,000ML 1,000 ML IV SCH (12:30)
[2019-12-28] MEDS ORDERED: ACETAMINOPHEN 500 MG TABLET PO ONE ×2 (12:40→16:30)
--- NOTE | 2019-12-28 12:46 | PHYS DOC ---
Past History Past Medical History: Arthritis, Diabetes, Fibromyalgia, Hypertension, Hypothyroid Past Surgical History: , Tonsillectomy Smoking: Non-smoker Alcohol Use: None Drug Use: None General Adult EDM: Chief Complaint: FEVER HPI: HPI: 69-year-old female past medical history significant for hypothyroidism, degenerative disc disease, obesity, diabetes, hypertension, hyperlipidemia, fibromyalgia and arthritis, presents to the ED brought in by EMS with complaints of fever that started upon waking with associated chills, loose diarrhea, nausea, increased urinary frequency (reports could be due to her lasix), chronic L4/5 back pain and weakness, stating "I feel like crap." Reports she has not left the house except for her wound care clinic appointment this past week. Has been off doxycycline for over a week-history of chronic lower extremity cellulitis. Thor well last night. Lives with who is asymptomatic. Review of Systems: Review of Systems: Eyes: Denies change in visual acuity, redness or discharge HENT: Denies nasal congestion or sore throat Respiratory: Denies cough or shortness of breath or hemoptysis Cardiovascular: Denies chest pain or syncope GI: Denies abdominal pain, vomiting, bloody stools : Denies dysuria or hematuria Musculoskeletal: Denies joint pain Neurologic: Denies headache or neck stiffness Endocrine: Denies polyuria or polydipsia Lymphatic: Denies swollen glands Psychiatric: Denies depression or anxiety Heart Score: Risk Factors: Risk Factors: DM, Current or recent (<one month) smoker, HTN, HLP, family history of CAD, obesity. Risk Scores: Score 0 - 3: 2.5% MACE over next 6 weeks - Discharge Home Score 4 - 6: 20.3% MACE over next 6 weeks - Admit for Clinical Observation Score 7 - 10: 72.7% MACE over next 6 weeks - Early Invasive Strategies Current Medications: Current Meds: Current Medications Medications (Trade) Dose Ordered Sig/Deb Start Time Stop Time Status Last Admin Dose Admin Acetaminophen (Tylenol) 1,000 mg 1X ONCE 12/28/19 12:40 12/28/19 12:41 DC Sodium Chloride 1,000 ml @ 1,000 mls/hr Q1H 12/28/19 12:30 12/28/19 13:29 Allergies: Allergies: Allergies Coded Allergies Type Severity Reaction Last Updated Verified cyclobenzaprine HCl Allergy Intermediate 11/02/18 Yes erythromycin base Allergy Intermediate 11/02/18 Yes I S O L A T I O N *CONTACT* Allergy Unknown 11/05/18 Yes labetalol Adverse Reaction Intermediate dizzy, flushing of face, tinnitis, blood pressure bottoming 11/02/18 Yes Physical Exam: PE: Constitutional: flu appearing, crying/uncomfortable HENT: Normocephalic, atraumatic, bilateral external ears normal, oropharynx dry, no oral exudates, nose normal. [] Eyes: PERRLA, EOMI, conjunctiva normal, no discharge. [] Neck: Normal range of motion, supple, no stridor. [] Cardiovascular:Heart rate regular rhythm, no murmur [] Lungs & Thorax: Bilateral breath sounds clear to auscultation [] Abdomen: soft, no tenderness, n Skin: Warm, dry, no erythema, +bl lower extremity hemosiderin deposition, erythema bilaterally but worse over left lower extremity w/increased warmth Back: No tenderness, no CVA tenderness. [] Extremities: No tenderness, no cyanosis, no clubbing, ROM intact, + bl LE edema. [] Neurologic: Alert and oriented X 3, normal motor function, normal sensory function, no focal deficits noted. [] Psychologic: Affect normal, judgement normal, mood normal. [] EKG: EKG: Sinus tachycardia at 117 bpm, left axis deviation, normal intervals, no T wave inversions, no ST elevations or ST depressions Radiology/Procedures: Radiology/Procedures: IMAGING REPORT Signed PATIENT: AGATHA SOLIZ ACCOUNT: [id number] : 1950 LOCATION: ER AGE: 69 SEX: F EXAM STATUS: REG ER ORD. PHYSICIAN: MERY BONNER DO REASON: fever PROCEDURE: PORTABLE CHEST 1V AP chest. HISTORY: Fever AP view was taken of the chest. Lungs are free of infiltrates. There is no effusion. Heart is normal in size. IMPRESSION: 1. No acute infiltrates. Electronically signed by: Ivan Arriaga MD (12/28/2019 2:00 PM) [id number] DICTATED AND SIGNED BY: IVAN ARRIAGA MD DATE: 12/28/19 1400 CC: PÉREZ MCCANN MD; MERY BONNER DO ~ IMAGING REPORT Signed PATIENT: AGATHA SOLIZ ACCOUNT: [id number] : 1950 LOCATION: ER AGE: 69 SEX: F EXAM STATUS: REG ER ORD. PHYSICIAN: MERY BONNER DO REASON: diarrhea PROCEDURE: CT ABD PELV W/ IV CONTRST ONLY CT study of the abdomen and pelvis with contrast Clinical indications: Diarrhea. TECHNIQUE: After IV infusion of 60 cc of Omnipaque 300, helical CT scanning of the abdomen and pelvis was performed. GI contrast was not administered. This may decrease the sensitivity to detect GI tract pathology. PQRS COMPLIANCE STATEMENT One or more of the following individualized dose reduction techniques were utilized for this study: 1. Automated exposure control 2. Adjustment of the mA and/or kV according to patient size 3. Use of iterative reconstruction technique COMPARISON: July 07, 2013 FINDINGS: The liver and spleen and pancreas are unremarkable. No adrenal mass is evident. No hydronephrosis or hydroureter or urinary tract stone is evident on either side. No renal mass is seen. Urinary bladder wall is smooth. Calcified uterine fibroid is seen within the fundus of the uterus. 3.3 cm cyst of the right ovary is seen. This was seen previously and measured 3.4 cm. No focal aneurysmal dilatation of the abdominal aorta is seen. There is a retrocrural lymph node present measuring 20 mm. This measured 18 mm previously. There are bilateral inguinal lymph nodes. This area was not included on the previous study. Largest lymph node on the left side measures 22 mm and the largest lymph node on the right side measures 17 mm. There is diffuse wall thickening of the colon starting at the mid transverse colon level extending down to the rectosigmoid region. There is also wall thickening of the ascending colon to the hepatic flexure. There is chronic fatty changes of the wall of the ascending colon and cecum consistent with chronic colitis. The other colonic wall thickening may represent more acute colitis. No pericolonic inflammatory change is seen. No obstructive bowel pattern is evident. Stomach is nondistended. No mesenteric edema or free air or free fluid is seen. No lytic process is seen. No lung base consolidation is evident. IMPRESSION: Colitis. No pericolonic inflammatory change or abscess or bowel obstruction or free air or free fluid is seen. No pneumatosis intestinalis is seen. Chronic cystic right ovary measuring 3.3 cm. Bilateral inguinal lymphadenopathy which may be reactive in nature. Clinical correlation and follow-up may be needed with regard to any growth in size. Electronically signed by: Chan Yanez MD (12/28/2019 3:45 PM) [id number] DICTATED AND SIGNED BY: CHAN YANEZ MD DATE: 12/28/19 1545 CC: PÉREZ MCCANN MD; MERY BONNER DO ~ Course & Med Decision Making: Course & Med Decision Making Pertinent Labs and Imaging studies reviewed. (See chart for details) Concern for sepsis secondary to UTI/likely pyelonephritis (wbc 20, fever, tachycardia) with acute on chronic LE cellulitis, diarrhea x1d and ckd. U/a with blood and rbcs-is contaminated. Valenza negative. Cover test was ordered although patient's chest x-ray is negative, she does have a productive cough but no sore throat. Will still admit on isolation precautions to Dr. Taylor. Patient stable at time of admission and agrees with this plan. I have spoken with the patient and/or caregivers. I have explained the patient's condition, diagnosis and treatment plan based on the information available to me at this time. I have answered the patient's and/or caregivers questions and answered any concerns. The patient and/or caregivers have as good an understanding of the patient's diagnosis, condition and treatment plan as can be expected at this point. The patient has been stabilized within the capability of the emergency department. The patient will be transported for further care and management or will be moved to an observation or inpatient service. I have communicated with the staff or medical practitioner taking over this patient's care. Andrew Disclaimer: Andrew Disclaimer: This electronic medical record was generated, in whole or in part, using a voice recognition dictation system. Departure Departure: Impression: Primary Impression: Sepsis Additional Impressions: UTI (urinary tract infection) Colitis Diarrhea Bilateral lower leg cellulitis Elevated lactic acid level Disposition: ADMITTED INPATIENT Condition: GUARDED Referrals: PÉREZ MCCANN MD (PCP) Justification of Admission: Justification of Admission: Justification of Admission Dx: Yes Sepsis: Infection MERY BONNER DO Dec 28, 2019 12:46
[2019-12-28] MEDS ORDERED: IV NORMAL SALINE 1,000ML 1,000 ML IV ONE ×2 (13:00→14:15)
[2019-12-28] MEDS ORDERED: ONDANSETRON PF 4 MG/2 ML VIAL. IVP ONE (13:00)
[2019-12-28] MEDS ORDERED: cefTRIAXone SODIUM 1 GM VIAL ONE (13:09)
[2019-12-28] MEDS ORDERED: IV NORMAL SALINE 50ML 50 ML ONE (13:09)
[2019-12-28] MEDS ORDERED: VANCOMYCIN PER PHARMACY MC PRN (13:15)
[2019-12-28 13:17] LABS: BILIRUBIN,URINE NEG (NEG); CLARITY,URINE HAZY; COLOR,URINE YELLOW; GLUCOSE,URINE >=1000 mg/dL (NEG)
[2019-12-28 13:18] LABS: NITRITE,URINE NEG (NEG); UROBILINOGEN,URINE 0.2 mg/dL (0.2 mg/dL)
[2019-12-28 13:19] LABS: BACTERIA,URINE MOD /HPF (0-FEW); SQUAMOUS EPITHELIAL CELL,UR MOD /LPF; WBC,URINE >40 /HPF (0-4)
[2019-12-28 13:20] LABS: YEAST,URINE PRESENT /HPF
[2019-12-28] MEDS ORDERED: VANCOMYCIN 2 GM in IV NORMAL SALINE 500ML 500 ML IV ONE (13:30)
[2019-12-28] MEDS ORDERED: KETOROLAC 15 MG/ML VIAL. IVP ONE (13:30)
[2019-12-28 13:33] LABS: BASO % 0 % (0-3); EOS % 0 % (0-3); HEMATOCRIT 39.6 % (36.0-47.0); HEMOGLOBIN 13.2 g/dL (12.0-15.5); LYMPH # 0.3 x10^3/uL (1.0-4.8); LYMPH % 2 % (24-48); MEAN CORPUSCULAR HEMOGLOBIN 31 pg (25-35); MEAN CORPUSCULAR HGB CONC 33 g/dL (31-37); MEAN CORPUSCULAR VOLUME 93 fL (79-100); MONO # 0.7 x10^3/uL (0.0-1.1); MONO % 3 % (0-9); NEUT # 19.3 x10^3uL (1.8-7.7); NEUT % 95 % (31-73); PLATELET COUNT 161 x10^3/uL (140-400); RED BLOOD COUNT 4.24 x10^6/uL (3.50-5.40); RED CELL DISTRIBUTION WIDTH 13.2 % (11.5-14.5); WHITE BLOOD COUNT 20.3 x10^3/uL (4.0-11.0)
[2019-12-28 13:49] LABS: CALCIUM 9.1 mg/dL (8.5-10.1); CREATININE 1.2 mg/dL (0.6-1.0); GFR 44.4; POTASSIUM 4.1 mmol/L (3.5-5.1)
[2019-12-28 13:53] LABS: ALBUMIN 4.1 g/dL (3.4-5.0); ALBUMIN/GLOBULIN RATIO 1.1 (1.0-1.7); TOTAL BILIRUBIN 0.7 mg/dL (0.2-1.0); TOTAL PROTEIN 7.9 g/dL (6.4-8.2)
[2019-12-28 14:00] LABS: INFLUENZA A PATIENT NEGATIVE (NEGATIVE); INFLUENZA B PATIENT NEGATIVE (NEGATIVE)
[2019-12-28] MEDS ORDERED: IOHEXOL 300 MG/ML 75 ML VIAL. IV ONE (14:00)
--- NOTE | 2019-12-28 14:03 | RAD ---
AP chest. HISTORY: Fever AP view was taken of the chest. Lungs are free of infiltrates. There is no effusion. Heart is normal in size. IMPRESSION: 1. No acute infiltrates. Electronically signed by: Ivan Arriaga MD (12/28/2019 2:00 PM) [id number]
[2019-12-28 14:10] LABS: % BANDS 12 % (0-9); % LYMPHS 4 % (24-48); % METAS 1 % (0-0); % MONOS 3 % (0-10); % SEGS 80 % (35-66)
[2019-12-28 14:11] LABS: PLT ESTIMATE ADEQUATE (ADEQUATE); TOXIC GRANULATION PRESENT; TOXIC VACUOLATION PRESENT
[2019-12-28 14:12] LABS: POLYCHROMASIA SLIGHT
--- NOTE | 2019-12-28 14:15 | EKG ---
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
[2019-12-28] MEDS ORDERED: KETOROLAC 15 MG/ML VIAL. ONE (14:46)
--- NOTE | 2019-12-28 15:48 | RAD ---
CT study of the abdomen and pelvis with contrast Clinical indications: Diarrhea. TECHNIQUE: After IV infusion of 60 cc of Omnipaque 300, helical CT scanning of the abdomen and pelvis was performed. GI contrast was not administered. This may decrease the sensitivity to detect GI tract pathology. PQRS COMPLIANCE STATEMENT One or more of the following individualized dose reduction techniques were utilized for this study: 1. Automated exposure control 2. Adjustment of the mA and/or kV according to patient size 3. Use of iterative reconstruction technique COMPARISON: July 07, 2013 FINDINGS: The liver and spleen and pancreas are unremarkable. No adrenal mass is evident. No hydronephrosis or hydroureter or urinary tract stone is evident on either side. No renal mass is seen. Urinary bladder wall is smooth. Calcified uterine fibroid is seen within the fundus of the uterus. 3.3 cm cyst of the right ovary is seen. This was seen previously and measured 3.4 cm. No focal aneurysmal dilatation of the abdominal aorta is seen. There is a retrocrural lymph node present measuring 20 mm. This measured 18 mm previously. There are bilateral inguinal lymph nodes. This area was not included on the previous study. Largest lymph node on the left side measures 22 mm and the largest lymph node on the right side measures 17 mm. There is diffuse wall thickening of the colon starting at the mid transverse colon level extending down to the rectosigmoid region. There is also wall thickening of the ascending colon to the hepatic flexure. There is chronic fatty changes of the wall of the ascending colon and cecum consistent with chronic colitis. The other colonic wall thickening may represent more acute colitis. No pericolonic inflammatory change is seen. No obstructive bowel pattern is evident. Stomach is nondistended. No mesenteric edema or free air or free fluid is seen. No lytic process is seen. No lung base consolidation is evident. IMPRESSION: Colitis. No pericolonic inflammatory change or abscess or bowel obstruction or free air or free fluid is seen. No pneumatosis intestinalis is seen. Chronic cystic right ovary measuring 3.3 cm. Bilateral inguinal lymphadenopathy which may be reactive in nature. Clinical correlation and follow-up may be needed with regard to any growth in size. Electronically signed by: Seth Yanez MD (12/28/2019 3:45 PM) [id number]
[2019-12-28] MEDS ORDERED: MORPHINE SULFATE 4 MG/ML DISP.SYRIN. ONE (16:06)
[2019-12-28] MEDS ORDERED: ONDANSETRON PF 4 MG/2 ML VIAL. IVP PRN (16:15)
[2019-12-28] MEDS ORDERED: ACETAMINOPHEN 325 MG TABLET PO ONE (16:15)
[2019-12-28] MEDS ORDERED: MORPHINE SULFATE 2 MG/ML DISP.SYRIN. IVP PRN (16:15)
[2019-12-28] MEDS ORDERED: MORPHINE SULFATE 4 MG/ML DISP.SYRIN. IV ONE ×2 (16:15)
--- NOTE | 2019-12-28 18:10 | NUR ---
The patient, AGATHA SOLIZ, 69 y/o, F admitted by PÉREZ MCCANN MD, was given written information regarding hospital policies, unit procedures and contact persons. Valuables were checked and left with patient at bedside. Pt is stable and vital signs were taken. Pt's a & o x 4.
[2019-12-28] MEDS ORDERED: EZET10TA20 PO (19:11)
[2019-12-28] MEDS ORDERED: DULO30CA2 PO (19:11)
[2019-12-28] MEDS ORDERED: HYDR-2869 PO (19:11)
[2019-12-28] MEDS ORDERED: METO50TA6 PO (19:11)
[2019-12-28] MEDS: IV NORMAL SALINE 1,000ML 1,000 ML IV SCH (19:15)
[2019-12-28] MEDS ORDERED: CLOB15CR TP (19:51)
[2019-12-28] MEDS ORDERED: DEXTROSE 50% 25 GM / 50ML DISP.SYRIN. IV PRN (20:45)
[2019-12-28] MEDS: ENOXAPARIN 40 MG/0.4 ML SYRINGE. SQ SCH (21:31)
[2019-12-28] MEDS: GABAPENTIN 300 MG CAPSULE. PO SCH (21:31)
[2019-12-28] MEDS: INSULIN LISPRO 300 UNITS/3 ML VIAL. SQ SCH (21:40)
[2019-12-28] MEDS: tiZANidine 4 MG TABLET. PO PRN (21:48)
[2019-12-28] MEDS: ACETAMINOPHEN 325 MG TABLET PO PRN (21:49)
[2019-12-29] MEDS: IV NORMAL SALINE 1,000ML 1,000 ML IV SCH ×2 (00:20→09:02)
[2019-12-29 00:25] VITALS: BP 112/53
[2019-12-29 04:00] VITALS: BP 135/60
[2019-12-29] MEDS: ACETAMINOPHEN 325 MG TABLET PO PRN (04:33)
[2019-12-29] MEDS: tiZANidine 4 MG TABLET. PO PRN ×3 (04:33→21:03)
[2019-12-29] MEDS: LEVOTHYROXINE 150 MCG TABLET PO SCH (06:03)
[2019-12-29 06:05] VITALS: BP 121/49
[2019-12-29] MEDS: INSULIN LISPRO 300 UNITS/3 ML VIAL. SQ SCH ×4 (07:30→20:04)
[2019-12-29] MEDS: GABAPENTIN 300 MG CAPSULE. PO SCH ×3 (08:58→20:56)
[2019-12-29] MEDS: LACTOBACILLUS RHAMNOSUS GG 1 CAPSULE. PO SCH (08:58)
[2019-12-29] MEDS: FUROSEMIDE 40 MG TABLET PO SCH (08:58)
[2019-12-29] MEDS: METOPROLOL TART IMMED RELEASE 50 MG TABLET PO SCH (08:59)
[2019-12-29] MEDS: EZETIMIBE 10 MG TABLET PO SCH (08:59)
[2019-12-29] MEDS: ENOXAPARIN 40 MG/0.4 ML SYRINGE. SQ SCH ×2 (09:00→20:56)
[2019-12-29] MEDS ORDERED: CLOBETASOL EMOLLIENT 0.05% TOPICAL CREAM 15GM TUBE. TP SCH ×2 (09:00→21:00)
[2019-12-29] MEDS: DULoxetine HCL 30 MG CAPSULE.DR PO SCH (09:01)
[2019-12-29 12:00] VITALS: BP 110/49
[2019-12-29] MEDS ORDERED: BUDESONIDE 3 MG CAP.ER.24H. PO SCH (12:30)
[2019-12-29] MEDS: BUDESONIDE 3 MG CAP.ER.24H. PO SCH (12:33)
[2019-12-29 12:34] LABS: BASO % 0 % (0-3); EOS % 0 % (0-3); HEMATOCRIT 34.9 % (36.0-47.0); HEMOGLOBIN 11.3 g/dL (12.0-15.5); LYMPH # 0.6 x10^3/uL (1.0-4.8); LYMPH % 5 % (24-48); MEAN CORPUSCULAR HEMOGLOBIN 30 pg (25-35); MEAN CORPUSCULAR HGB CONC 32 g/dL (31-37); MEAN CORPUSCULAR VOLUME 94 fL (79-100); MONO # 0.3 x10^3/uL (0.0-1.1); MONO % 3 % (0-9); NEUT # 10.7 x10^3uL (1.8-7.7); NEUT % 92 % (31-73); PLATELET COUNT 134 x10^3/uL (140-400); RED BLOOD COUNT 3.73 x10^6/uL (3.50-5.40); RED CELL DISTRIBUTION WIDTH 13.7 % (11.5-14.5); WHITE BLOOD COUNT 11.6 x10^3/uL (4.0-11.0)
[2019-12-29 12:42] LABS: CALCIUM 7.9 mg/dL (8.5-10.1); GFR 54.8; POTASSIUM 3.6 mmol/L (3.5-5.1)
[2019-12-29] MEDS ORDERED: VANCOMYCIN 1.5 GM in IV NORMAL SALINE 500ML 500 ML IV SCH (14:00)
[2019-12-29] MEDS: CLINDAMYCIN 600MG PREMIX 50 ML IV SCH ×2 (15:22→21:10)
--- NOTE | 2019-12-29 16:05 | EKG ---
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
[2019-12-29 17:12] VITALS: BP 103/43
[2019-12-29] MEDS: IV 1/2 NORMAL SALINE 1,000 ML IV SCH (18:25)
[2019-12-29] MEDS: CLOBETASOL EMOLLIENT 0.05% TOPICAL CREAM 15GM TUBE. TP SCH (20:56)
[2019-12-29 21:00] VITALS: BP 118/51
--- NOTE | 2019-12-29 21:10 | HP ---
ADMIT DATE: 12/28/2019 HISTORY OF PRESENT ILLNESS: A 69-year-old patient came in through the Emergency Room. The patient was feeling fairly ill, weak, tired, running a fever, associated chills, ____ diarrhea, nausea including urinary frequency. The patient also has chronic back pain, but she felt extremely bad when she was in the Emergency Room, she found out that she had a white count of over 20,000 and there were other elements plus a temperature of 102, which would indicate that the patient was probably septic. She also had a bad bladder infection of group D strep, probably Streptococcus pyogenes. In any case, the patient was admitted because of her sepsis, urinary tract infection and she also had a left shift in bands of 12 bands. The patient was admitted as indicated for IV antibiotic therapy, close monitoring, placed in the ICU. PAST MEDICAL HISTORY: Thyroid disease, tonsillectomy, numbness, hypercholesterolemia, gallbladder disease, obesity, urinary tract infection, back pain, fibromyalgia, osteoarthritis, degenerative disk disease, hypothyroidism, has had chickenpox surgeries and had a history of MRSA in the past. ALLERGIES: THE PATIENT HAS ALLERGIES TO CYCLOBENZAPRINE, ERYTHROMYCIN, FENTANYL, LABETALOL. SOCIAL HISTORY: The patient denies smoking, alcohol, drug use. The patient is a full code. FAMILY HISTORY: Noncontributory. REVIEW OF SYSTEMS: Generalized weakness, generalized abdominal pain, problems with her diarrhea, but otherwise unremarkable there. The patient denies chest pain presently, although she did have some intermittent chest discomfort and one of her EKGs was a little bit abnormal. We will repeat that. The patient in turn denied any nausea or vomiting. MEDICATIONS: The patient's medications from home include tizanidine 4 mg daily, Zetia 10 daily, hydralazine 100 mg b.i.d., metoprolol 50 mg daily, hydrocodone, gabapentin 600, duloxetine 30 mg daily, furosemide 40 mg daily, lactobacillus, Invokana 300 mg daily, levothyroxine, Krill oil, multivitamins and CBD oil. PHYSICAL EXAMINATION: GENERAL: The patient on exam is an ill-appearing white female, feeling still fairly ill. VITAL SIGNS: Blood pressure 123/60, pulse 112, temperature 102.2 (NC). The patient at one time had a pulse of 142, respiratory rate of 30, although those have come down dramatically to 103/43, respirations 16, pulse 73, temperature down to 99.5. HEENT: The patient is otherwise ill-appearing female. Head was atraumatic, normocephalic. Eyes: PERRLA without jaundice. The mouth and throat were normal. NECK: Supple. LUNGS: Diminished, but clear throughout. CARDIOVASCULAR: Regular sinus rhythm. ABDOMEN: Protuberant, soft, tenderness in the pelvic area, but no rebounding or guarding. Positive bowel sounds. No hepatosplenomegaly noted. EXTREMITIES: No clubbing, cyanosis. Trace edema. NEUROLOGIC: The patient is alert and oriented x 3. LABORATORY DATA: As noted, the white count was 20,000 and there was a left shift of 12 bands and hemoglobin 13 and 39. Chemistries showed 137, 3.6, 19 and 1, glucose 223. Troponins were 0.017. Creatinine ____. UA did show greater than 40 white blood cells and 11-20 reds. The patient's serology was negative for influenza. The patient otherwise will be monitored carefully in the ICU, placed on IV antibiotic therapy, switched over from vancomycin to that of clindamycin because of a positive urine culture for Streptococcus pyogenes. The patient is also on Rocephin. The patient's CT scan showed colitis of the bowel and probable calcified uterine fibroids and the patient otherwise continued to be monitored. She also had a cystic ovarian growth. She also had ____ inguinal adenopathy, which may be reactive in nature. She does have severe cellulitis or dermatitis to her lower legs she says where she had stockings on, extended down to her ankles and to the feet where exactly the stockings had been placed, so looks like a contact dermatitis. In any case, quite ill female, presently on IV fluids, IV antibiotic therapy and we will continue to monitor her accordingly. PÉREZ MCCANN MD DR: LYDIA/lashay JOB#: [id number] / [id number]
[2019-12-30] VITALS: BP 119/52
[2019-12-30] MEDS: tiZANidine 4 MG TABLET. PO PRN ×4 (02:42→19:40)
[2019-12-30] MEDS: ACETAMINOPHEN 325 MG TABLET PO PRN ×2 (02:42→07:40)
[2019-12-30 02:47] VITALS: BP 124/60
[2019-12-30] MEDS: IV 1/2 NORMAL SALINE 1,000 ML IV SCH ×2 (05:20→20:43)
[2019-12-30] MEDS: CLINDAMYCIN 600MG PREMIX 50 ML IV SCH ×3 (05:33→20:45)
[2019-12-30] MEDS: LEVOTHYROXINE 150 MCG TABLET PO SCH (05:33)
[2019-12-30 06:42] LABS: BASO # 0.1 x10^3/uL (0.0-0.2); BASO % 1 % (0-3); EOS % 0 % (0-3); HEMATOCRIT 31.3 % (36.0-47.0); HEMOGLOBIN 10.5 g/dL (12.0-15.5); LYMPH # 0.6 x10^3/uL (1.0-4.8); LYMPH % 6 % (24-48); MEAN CORPUSCULAR HEMOGLOBIN 31 pg (25-35); MEAN CORPUSCULAR HGB CONC 34 g/dL (31-37); MEAN CORPUSCULAR VOLUME 92 fL (79-100); MONO # 0.3 x10^3/uL (0.0-1.1); MONO % 3 % (0-9); NEUT # 9.3 x10^3uL (1.8-7.7); NEUT % 91 % (31-73); PLATELET COUNT 123 x10^3/uL (140-400); RED CELL DISTRIBUTION WIDTH 13.7 % (11.5-14.5); WHITE BLOOD COUNT 10.2 x10^3/uL (4.0-11.0)
[2019-12-30 06:46] LABS: CALCIUM 7.9 mg/dL (8.5-10.1); CREATININE 0.8 mg/dL (0.6-1.0); GFR 70.9; POTASSIUM 3.5 mmol/L (3.5-5.1)
[2019-12-30] MEDS: BUDESONIDE 3 MG CAP.ER.24H. PO SCH (07:38)
[2019-12-30] MEDS: FUROSEMIDE 40 MG TABLET PO SCH (07:39)
[2019-12-30] MEDS: DULoxetine HCL 30 MG CAPSULE.DR PO SCH (07:39)
[2019-12-30] MEDS: LACTOBACILLUS RHAMNOSUS GG 1 CAPSULE. PO SCH (07:39)
[2019-12-30] MEDS: EZETIMIBE 10 MG TABLET PO SCH (07:39)
[2019-12-30] MEDS: GABAPENTIN 300 MG CAPSULE. PO SCH ×3 (07:40→20:44)
[2019-12-30] MEDS: METOPROLOL TART IMMED RELEASE 50 MG TABLET PO SCH (07:40)
[2019-12-30] MEDS: ENOXAPARIN 40 MG/0.4 ML SYRINGE. SQ SCH ×2 (07:41→20:43)
[2019-12-30] MEDS: INSULIN LISPRO 300 UNITS/3 ML VIAL. SQ SCH ×4 (07:48→20:44)
--- NOTE | 2019-12-30 08:15 | NUR ---
IP: patient PUI for COVID-19, requires contact and airborne precautions.
[2019-12-30] MEDS: CLOBETASOL EMOLLIENT 0.05% TOPICAL CREAM 15GM TUBE. TP SCH ×2 (09:00→20:44)
[2019-12-30 09:23] VITALS: BP 130/62
--- NOTE | 2019-12-30 10:05 | PN ---
DATE: SUBJECTIVE: The patient is in the ICU with sepsis, lactic acidosis, leukocytosis, although she has improved dramatically. White count down from 20, down below 10. The patient is still running low-grade temperature and still receiving IV clindamycin and Rocephin presently. History of colitis and the like. Diarrhea seems to have stopped. She is eating, but food does not taste good. Her vital signs remain basically stable, but she is having still problems with just not feeling well, feeling ill. OBJECTIVE: VITAL SIGNS: The patient's blood pressure is that of 130/62, respiratory rate 22, pulse 80, temperature 99.9. HEENT: The patient's head atraumatic, normocephalic. LUNGS: Diminished, but clear. CARDIOVASCULAR: Stable. ABDOMEN: Soft, markedly improved, nontender. EXTREMITIES: No clubbing, cyanosis, nor edema, a little bit clammy. Continue to monitor this. Still receiving fluids, Lovenox and we will continue with IV antibiotic therapy. The legs look markedly improved, they are quite as maroon color as they are just a pale red for that matter, but making good progress overall. IMPRESSION: Therefore, sepsis, cellulitis to the legs, uterine fibroids, inguinal adenopathy, dermatitis. I assume COVID-19 has been done on her, but it is like it is still pending. UA showed group B Streptococcus, but continue to monitor her on that and continue IV antibiotic therapy for such. PÉREZ MCCANN MD DR: LYDIA/lashay JOB#: [id number] / [id number]
[2019-12-30 12:00] VITALS: BP 117/54
--- NOTE | 2019-12-30 13:44 | NUR ---
Pt is able to verbalize understanding of poc. PT is able to get up to the commode without assistance. Fito KABA
--- NOTE | 2019-12-30 17:00 | NUR ---
Wound/Ostomy Care Wound Type/Assessment: BLE cellulitis. Pt has hemosiderin staining to BLE with the left leg being more edematous, red and warm than the right. Left posterior ankle has dry cracks that are being treated with clobetasol cream per the [facility]ound Care center where the patient was seen last week. Treatment Recommendations/Plan: continue clobetasol cream as ordered and follow up in [facility] after discharge Education provided: PU prevention and wound care POC Offloading surface/device: none Recommended Referrals/Tests: none Discharge Recommendations for dressings: continue as above noted
[2019-12-30 17:22] VITALS: BP 145/55
[2019-12-30 22:37] VITALS: BP 163/78
[2019-12-31] VITALS (7 sets, daily range): BP systolic 122–190; BP diastolic 61–92
[2019-12-31] MEDS: tiZANidine 4 MG TABLET. PO PRN ×6 (01:08→22:27)
[2019-12-31] MEDS: CLINDAMYCIN 600MG PREMIX 50 ML IV SCH ×3 (05:45→20:23)
[2019-12-31] MEDS: LEVOTHYROXINE 150 MCG TABLET PO SCH (05:45)
[2019-12-31] MEDS: ACETAMINOPHEN 325 MG TABLET PO PRN ×2 (06:08→22:14)
[2019-12-31] MEDS: EZETIMIBE 10 MG TABLET PO SCH (07:50)
[2019-12-31] MEDS: FUROSEMIDE 40 MG TABLET PO SCH (07:50)
[2019-12-31] MEDS: LACTOBACILLUS RHAMNOSUS GG 1 CAPSULE. PO SCH (07:50)
[2019-12-31] MEDS: BUDESONIDE 3 MG CAP.ER.24H. PO SCH (07:50)
[2019-12-31] MEDS: GABAPENTIN 300 MG CAPSULE. PO SCH ×3 (07:51→20:24)
[2019-12-31] MEDS: ENOXAPARIN 40 MG/0.4 ML SYRINGE. SQ SCH ×2 (07:51→20:24)
[2019-12-31] MEDS: DULoxetine HCL 30 MG CAPSULE.DR PO SCH (07:51)
[2019-12-31] MEDS: METOPROLOL TART IMMED RELEASE 50 MG TABLET PO SCH (07:52)
[2019-12-31] MEDS: INSULIN LISPRO 300 UNITS/3 ML VIAL. SQ SCH ×4 (07:53→20:24)
[2019-12-31] MEDS: IV 1/2 NORMAL SALINE 1,000 ML IV SCH (08:00)
[2019-12-31] MEDS: CLOBETASOL EMOLLIENT 0.05% TOPICAL CREAM 15GM TUBE. TP SCH ×2 (09:00→20:25)
[2019-12-31 09:31] LABS: BASO % 0 % (0-3); EOS % 0 % (0-3); HEMOGLOBIN 9.9 g/dL (12.0-15.5); LYMPH # 0.8 x10^3/uL (1.0-4.8); LYMPH % 12 % (24-48); MEAN CORPUSCULAR HEMOGLOBIN 31 pg (25-35); MEAN CORPUSCULAR HGB CONC 33 g/dL (31-37); MEAN CORPUSCULAR VOLUME 94 fL (79-100); MONO # 0.4 x10^3/uL (0.0-1.1); MONO % 6 % (0-9); NEUT # 5.4 x10^3uL (1.8-7.7); NEUT % 82 % (31-73); PLATELET COUNT 125 x10^3/uL (140-400); RED CELL DISTRIBUTION WIDTH 13.5 % (11.5-14.5); WHITE BLOOD COUNT 6.7 x10^3/uL (4.0-11.0)
[2019-12-31 09:36] LABS: CALCIUM 8.3 mg/dL (8.5-10.1); CREATININE 0.8 mg/dL (0.6-1.0); GFR 70.9; POTASSIUM 3.1 mmol/L (3.5-5.1)
--- NOTE | 2019-12-31 09:40 | NUR ---
Pt is able to verbalize understanding of poc. PT did have some shortness of breath last night, orders to DC fluids and chest xray. Aurora KABA
[2019-12-31] MEDS ORDERED: FUROSEMIDE 20 MG/2 ML VIAL IVP ONE ×3 (09:45→22:00)
[2019-12-31] MEDS ORDERED: ELECTROLYTE (ICU) PROTOCOL. MC PRN (10:00)
[2019-12-31] MEDS ORDERED: BISACODYL 10 MG SUPP.RECT PR PRN (10:00)
[2019-12-31] MEDS ORDERED: POTASSIUM CHLORIDE 20 MEQ TABLET.ER. PO ONE ×2 (10:05)
[2019-12-31] MEDS: POTASSIUM CHLORIDE 20 MEQ TABLET.ER. PO SCH ×2 (10:09→12:41)
--- NOTE | 2019-12-31 10:15 | RAD ---
CHEST AP ONLY 12/31/2019 9:42 AM INDICATION: Shortness of air COMPARISON: 12/28/2019 TECHNIQUE: Portable frontal view of the chest is provided. FINDINGS: The cardiomediastinal silhouette is similar in appearance. There are new perihilar interstitial opacities as compared to prior examination from 12/28/2019. New trace left pleural effusion with adjacent compressive atelectasis. No pneumothorax. No suspicious osseous abnormality. IMPRESSION: Increased perihilar interstitial airspace disease with trace of pleural effusion may be seen with congestive heart failure and mild pulmonary vascular congestion. However, interstitial pneumonitis may have similar appearance. Electronically signed by: Irish Vazquez MD (12/31/2019 10:12 AM) [id number]
--- NOTE | 2019-12-31 12:25 | PN ---
DATE: 12/31/2019 SUBJECTIVE: A 69-year-old female in the ICU with sepsis. The patient says she is feeling a little better this morning, had a little bit of shortness of breath and will get a portable chest on her, ____ off of fluids and give her an additional IV Lasix one time. OBJECTIVE: VITAL SIGNS: Blood pressure 148/62, respiratory rate 22, pulse ____, temperature down to 98.6, room air 95%. GENERAL: The patient is alert and oriented. Speech is fluent, spontaneous, appropriate. HEENT: Head was atraumatic, normocephalic. LUNGS: Actually were diminished in the bases. No rales or rhonchi noted. CARDIOVASCULAR: Regular sinus rhythm, S1, S2, without murmur, rub, thrill, or extra heart sound. ABDOMEN: Protuberant, soft, nontender. EXTREMITIES: The legs that have been infected look markedly improved with the ____ and the antibiotic therapy. She is not having the intense redness. They are kind of a hyperpigmented area, probably from the damage done from the previous infection. Pulses are noted distally, still scaling to the skin, probably need hand cream or some type of ____ lotion to the legs as well to cut down on the dry skin. The patient is not complaining of any abdominal pain, although she did have that history of colitis and there is no mention of any bowel movement noted in the chart. IMPRESSION: Therefore, sepsis, colitis, cellulitis to the legs, inguinal adenopathy, dermatitis, obesity, essential hypertension, anemia of chronic disease, hypokalemia, electrolyte replacement, type 2 diabetes. PLAN: Continue in the ICU and make adjustments on all the above-mentioned medical issues. PÉREZ MCCANN MD DR: LYDIA/lashay JOB#: [id number] / [id number]
[2019-12-31] MEDS ORDERED: NITROGLYCERIN OINT 1 GM PACKET. ONE (20:19)
--- NOTE | 2019-12-31 20:20 | NUR ---
Called Dr. Muñoz regarding elevated BP, orders received
[2019-12-31] MEDS: NITROGLYCERIN OINT 1 GM PACKET. TP SCH (20:24)
--- NOTE | 2019-12-31 21:55 | NUR ---
Call to Dr. Muñoz regarding continued elevated BP, SOA, anxious, orders received.
[2019-12-31] MEDS ORDERED: LORazepam 0.5 MG TABLET PO PRN (22:00)
[2019-12-31] MEDS ORDERED: MORPHINE SULFATE 2 MG/ML DISP.SYRIN. IV PRN (22:00)
[2019-12-31] MEDS: METOPROLOL TARTRATE 5 MG/5 ML VIAL. IV PRN (22:14)
--- NOTE | 2019-12-31 22:39 | NUR ---
Discussed eason catheter with patient. Pt refused catheter at this time. Advised pt that if the SOA with activity continued that the catheter is an option, pt verbalized understanding.
[2019-12-31] MEDS: amLODIPine BESYLATE 5 MG TABLET PO SCH (22:52)
[2019-12-31] MEDS: LISINOPRIL 20 MG TABLET PO SCH (22:53)
[2020-01-01] VITALS (16 sets, daily range): BP systolic 116–196; BP diastolic 50–94
[2020-01-01] MEDS: tiZANidine 4 MG TABLET. PO PRN ×3 (04:02→20:29)
[2020-01-01] MEDS: METOPROLOL TARTRATE 5 MG/5 ML VIAL. IV PRN ×2 (04:03→20:29)
[2020-01-01 05:13] LABS: FECAL OB PT NEGATIVE (NEG)
[2020-01-01] MEDS: CLINDAMYCIN 600MG PREMIX 50 ML IV SCH (05:36)
[2020-01-01] MEDS: NITROGLYCERIN OINT 1 GM PACKET. TP SCH ×3 (05:36→20:25)
[2020-01-01] MEDS: LEVOTHYROXINE 150 MCG TABLET PO SCH (05:36)
[2020-01-01 06:40] LABS: BASO % 0 % (0-3); EOS % 0 % (0-3); HEMATOCRIT 28.6 % (36.0-47.0); HEMOGLOBIN 9.6 g/dL (12.0-15.5); LYMPH # 0.8 x10^3/uL (1.0-4.8); LYMPH % 11 % (24-48); MEAN CORPUSCULAR HEMOGLOBIN 31 pg (25-35); MEAN CORPUSCULAR HGB CONC 34 g/dL (31-37); MEAN CORPUSCULAR VOLUME 93 fL (79-100); MONO # 0.6 x10^3/uL (0.0-1.1); MONO % 8 % (0-9); NEUT # 5.7 x10^3uL (1.8-7.7); NEUT % 80 % (31-73); PLATELET COUNT 160 x10^3/uL (140-400); RED BLOOD COUNT 3.09 x10^6/uL (3.50-5.40); RED CELL DISTRIBUTION WIDTH 13.4 % (11.5-14.5); WHITE BLOOD COUNT 7.1 x10^3/uL (4.0-11.0)
[2020-01-01 06:49] LABS: CALCIUM 8.2 mg/dL (8.5-10.1); CREATININE 0.7 mg/dL (0.6-1.0); GFR 82.7; POTASSIUM 3.3 mmol/L (3.5-5.1)
[2020-01-01] MEDS: GABAPENTIN 300 MG CAPSULE. PO SCH ×3 (08:11→20:29)
[2020-01-01] MEDS: EZETIMIBE 10 MG TABLET PO SCH (08:11)
[2020-01-01] MEDS: METOPROLOL TART IMMED RELEASE 50 MG TABLET PO SCH (08:11)
[2020-01-01] MEDS: DULoxetine HCL 30 MG CAPSULE.DR PO SCH (08:11)
[2020-01-01] MEDS: LACTOBACILLUS RHAMNOSUS GG 1 CAPSULE. PO SCH (08:11)
[2020-01-01] MEDS: BUDESONIDE 3 MG CAP.ER.24H. PO SCH (08:12)
[2020-01-01] MEDS: PANTOPRAZOLE 40 MG TABLET. PO SCH (08:12)
[2020-01-01] MEDS: FUROSEMIDE 40 MG TABLET PO SCH (08:12)
[2020-01-01] MEDS: FERROUS SULFATE 325 MG TABLET. PO SCH (08:12)
[2020-01-01] MEDS: LISINOPRIL 20 MG TABLET PO SCH (08:13)
[2020-01-01] MEDS: amLODIPine BESYLATE 5 MG TABLET PO SCH (08:13)
[2020-01-01] MEDS: ENOXAPARIN 40 MG/0.4 ML SYRINGE. SQ SCH ×2 (08:14→20:24)
[2020-01-01] MEDS: INSULIN LISPRO 300 UNITS/3 ML VIAL. SQ SCH ×4 (08:15→20:30)
[2020-01-01] MEDS: CLOBETASOL EMOLLIENT 0.05% TOPICAL CREAM 15GM TUBE. TP SCH ×2 (09:00→20:30)
[2020-01-01] MEDS ORDERED: DULoxetine HCL 30 MG CAPSULE.DR PO ONE (09:30)
[2020-01-01] MEDS ORDERED: FUROSEMIDE 40 MG/4 ML VIAL IVP SCH (09:30)
--- NOTE | 2020-01-01 09:33 | PDOC2 ---
CATIA VAZQUEZ ELIJAH 01/01/20 0933: CARDIAC CONSULT DATE OF CONSULT DOS: DATE: 01/01/20 TIME: 09:29 REASON FOR CONSULT Reason for Consult HTN urgency REFERRING PHYSICIAN Referring Physician Dr. Muñoz SOURCE Source: Chart review, Patient HPI History of Present Illness This is a 69 yo female who presented secondary to fevers, chills, diarrhea, and weakness. Was on the stool having bowel movement and was unable to lift herself from stool. attempt to help her but they were not able to get to up. Has to call EMS. This morning, feeling short of breath. No chest pain, palpitations, dizziness. PAST MEDICAL HISTORY Cardiovascular: HTN, hyperipidemia Musculoskeletal: Osteoarthritis Rheumatologic: Fibromyalgia Endocrine: Hypothyroidism PAST SURGICAL HISTORY Past Surgical History: Cholecystectomy, Tonsillectomy FAMILY HISTORY Family History Diabetes, High Cholestrol, Hypertension SOCIAL HISTORY Smoke: No ALCOHOL: none Drugs: None CURRENT MEDICATIONS Current Medications Current Medications Sodium Chloride 1,000 ml @ 1,000 mls/hr Q1H IV Last administered on 12/28/19at 13:15; Start 12/28/19 at 12:30; Stop 12/28/19 at 13:29; Status DC Acetaminophen (Tylenol) 1,000 mg 1X ONCE PO ; Start 12/28/19 at 12:40; Stop 12/28/19 at 13:28; Status DC Ondansetron HCl (Zofran) 4 mg 1X ONCE IVP Last administered on 12/28/19at 13:14; Start 12/28/19 at 13:00; Stop 12/28/19 at 13:01; Status DC Sodium Chloride 1,000 ml @ 1,000 mls/hr 1X ONCE IV Last administered on 12/28/19at 14:05; Start 12/28/19 at 13:00; Stop 12/28/19 at 13:59; Status DC Ceftriaxone Sodium 1 gm/ Sodium Chloride 50 ml @ 100 mls/hr 1X ONCE IV Last administered on 12/28/19at 13:14; Start 12/28/19 at 13:00; Stop 12/28/19 at 13:29; Status DC Sodium Chloride 50 ml @ As Directed STK-MED ONCE .ROUTE ; Start 12/28/19 at 13:09; Stop 12/28/19 at 13:09; Status DC Ceftriaxone Sodium (Rocephin) 1 gm STK-MED ONCE .ROUTE ; Start 12/28/19 at 13:09; Stop 12/28/19 at 13:09; Status DC Vancomycin HCl (Vanco Per Pharmacy) 1 each PRN DAILY PRN MC SEE COMMENTS; Start 12/28/19 at 13:15; Stop 12/29/19 at 11:40; Status DC Ketorolac Tromethamine (Toradol 15mg Vial) 15 mg 1X ONCE IVP Last administered on 12/28/19at 13:30; Start 12/28/19 at 13:30; Stop 12/28/19 at 13:31; Status DC Vancomycin HCl 2 gm/Sodium Chloride 500 ml @ 250 mls/hr 1X ONCE IV Last administered on 12/28/19at 14:06; Start 12/28/19 at 13:30; Stop 12/28/19 at 15:29; Status DC Iohexol (Omnipaque 300 Mg/ml) 75 ml 1X ONCE IV Last administered on 12/28/19at 14:28; Start 12/28/19 at 14:00; Stop 12/28/19 at 14:13; Status DC Sodium Chloride 1,000 ml @ 1,000 mls/hr 1X ONCE IV Last administered on 12/28/19at 16:10; Start 12/28/19 at 14:15; Stop 12/28/19 at 15:14; Status DC Vancomycin HCl 1.5 gm/Sodium Chloride 500 ml @ 250 mls/hr Q24H IV ; Start 12/29/19 at 14:00; Stop 12/29/19 at 11:50; Status DC Ketorolac Tromethamine (Toradol 15mg Vial) 15 mg STK-MED ONCE .ROUTE ; Start 12/28/19 at 14:46; Stop 12/28/19 at 14:46; Status DC Ondansetron HCl (Zofran) 4 mg PRN Q4HRS PRN IVP NAUSEA/VOMITING; Start 12/28/19 at 16:15; Stop 12/29/19 at 16:14; Status DC Morphine Sulfate (Morphine 2mg Syringe) 2 mg PRN Q2HR PRN IVP PAIN; Start 12/28/19 at 16:15; Stop 12/29/19 at 16:14; Status DC Sodium Chloride 1,000 ml @ 125 mls/hr Q8H IV Last administered on 12/29/19at 09:02; Start 12/28/19 at 16:04; Stop 12/29/19 at 16:03; Status DC Morphine Sulfate (Morphine 4mg Syringe) 4 mg 1X ONCE IV Last administered on 12/28/19at 16:10; Start 12/28/19 at 16:15; Stop 12/28/19 at 16:16; Status DC Morphine Sulfate (Morphine 4mg Syringe) 4 mg 1X ONCE IV ; Start 12/28/19 at 16:15; Stop 12/28/19 at 16:16; Status DC Morphine Sulfate (Morphine 4mg Syringe) 4 mg STK-MED ONCE .ROUTE ; Start at 16:06; Stop 12/28/19 at 16:06; Status DC Acetaminophen (Tylenol) 650 mg 1X ONCE PO ; Start 12/28/19 at 16:15; Stop 12/28/19 at 16:26; Status DC Acetaminophen (Tylenol) 1,000 mg 1X ONCE PO Last administered on 12/28/19at 16:23; Start 12/28/19 at 16:30; Stop 12/28/19 at 16:31; Status DC Acetaminophen (Tylenol) 650 mg PRN Q6HRS PRN PO MILD PAIN / TEMP > 100.3'F Last administered on 12/31/19at 22:14; Start 12/28/19 at 20:00 Enoxaparin Sodium (Lovenox 40mg Syringe) 40 mg BID SQ Last administered on 01/01/20at 08:14; Start 12/28/19 at 21:00 Ceftriaxone Sodium 1 gm/ Sodium Chloride 50 ml @ 100 mls/hr Q24H IV Last administered on 12/31/19at 12:40; Start 12/29/19 at 13:00 Duloxetine HCl (Cymbalta) 30 mg DAILY PO Last administered on 01/01/20at 08:11; Start 12/29/19 at 09:00; Stop 01/01/20 at 09:26; Status DC EZETIMIBE (Zetia) 10 mg DAILY PO Last administered on 01/01/20at 08:11; Start 12/29/19 at 09:00 Furosemide (Lasix) 40 mg DAILY PO Last administered on 01/01/20at 08:12; Start 12/29/19 at 09:00 Hydralazine HCl (Apresoline) 100 mg BID PO Last administered on 01/01/20at 08:10; Start 12/28/19 at 21:00 Levothyroxine Sodium (Synthroid) 150 mcg DAILY06 PO Last administered on 01/01/20at 05:36; Start 12/29/19 at 06:00 Metoprolol Tartrate (Lopressor) 50 mg DAILY PO Last administered on 01/01/20at 08:11; Start 12/29/19 at 09:00 Tizanidine HCl (Zanaflex) 4 mg PRN Q4HRS PRN PO MUSCLE SPASMS Last administered on 01/01/20at 04:02; Start 12/28/19 at 20:15 Clobetasol Propionate 1 lesly DAILY TP ; Start 12/29/19 at 09:00; Stop 12/29/19 at 12:31; Status DC Gabapentin (Neurontin) 300 mg TID PO Last administered on 01/01/20at 08:11; Start 12/28/19 at 21:00 Lactobacillus Rhamnosus (Culturelle) 1 cap DAILY PO Last administered on 01/01/20at 08:11; Start 12/29/19 at 09:00 Sodium Chloride 1,000 ml @ 75 mls/hr [id number] IV Last administered on 12/30/19at 20:43; Start 12/29/19 at 16:00; Stop 12/31/19 at 09:45; Status DC Insulin Human Lispro (HumaLOG) 0-7 UNITS QIDACHS SQ Last administered on 01/01/20at 08:15; Start 12/28/19 at 21:00 Dextrose (Dextrose 50%-Water Syringe) 12.5 gm PRN Q15MIN PRN IV SEE COMMENTS; Start 12/28/19 at 20:45 Vancomycin HCl (Vancomycin Trough Level) 1 each 1X ONCE MC ; Start 12/31/19 at 13:30; Stop 12/29/19 at 11:50; Status DC Metronidazole 100 ml @ 100 mls/hr Q8HRS IV ; Start 12/29/19 at 14:00; Stop 12/29/19 at 11:43; Status DC Budesonide (Entocort) 3 mg DAILY PO ; Start 12/29/19 at 12:30; Stop 12/29/19 at 12:17; Status DC Clindamycin Phosphate 50 ml @ 100 mls/hr Q8HRS IV Last administered on 12/31at 05:36; Start 12/29/19 at 14:00 Budesonide (Entocort) 9 mg DAILY PO Last administered on 01/01/20at 08:12; Start 12/29/19 at 12:30 Clobetasol Propionate 1 lesly BID TP ; Start 12/29/19 at 21:00; Status UNV Clobetasol Propionate 1 lesly BID TP Last administered on 12/31/19at 20:25; Start 12/29/19 at 21:00 Furosemide (Lasix) 20 mg 1X ONCE IVP Last administered on 12/31/19at 10:02; Start 12/31/19 at 09:45; Stop 12/31/19 at 09:54; Status DC Urea (Gelh-J-Awcaey) 1 lesly DAILY TP ; Start 01/01/20 at 09:00 Info (Icu Electrolyte Protocol) 1 ea CONT PRN PRN MC PER PROTOCOL; Start 12/31/19 at 10:00 Bisacodyl (Dulcolax Supp) 10 mg PRN DAILY PRN DE CONSTIPATION; Start 12/31/19 at 10:00 Potassium Chloride (Klor-Con) 20 meq STK-MED ONCE PO ; Start 12/31/19 at 10:05; Stop 12/31/19 at 10:05; Status DC Potassium Chloride (Klor-Con) 20 meq STK-MED ONCE PO ; Start 12/31/19 at 10:05; Stop 12/31/19 at 10:05; Status DC Potassium Chloride (Klor-Con) 40 meq Q2H PO Last administered on 12/31/19at 12:41; Start 12/31/19 at 10:15; Stop 12/31/19 at 12:16; Status DC Nitroglycerin (Nitro-Bid Oint) 1 inch Q8HRS TP Last administered on 01/01/20at 05:36; Start 12/31/19 at 22:00 Nitroglycerin (Nitro-Bid Oint) 1 inch STK-MED ONCE .ROUTE ; Start 12/31/19 at 20:19; Stop 12/31/19 at 20:20; Status DC Furosemide (Lasix) 20 mg 1X ONCE IVP ; Start 12/31/19 at 22:00; Stop 12/31/19 at 22:01; Status UNV Metoprolol Tartrate (Lopressor Vial) 5 mg PRN Q6HRS PRN IV ELEVATED BP, SEE COMMENTS Last administered on 01/01/20at 04:03; Start 12/31/19 at 22:00 Morphine Sulfate (Morphine 2mg Syringe) 2 mg PRN Q2HR PRN IV PAIN or airhunger; Start 12/31/19 at 22:00 Furosemide (Lasix) 20 mg 1X ONCE IVP Last administered on 12/31/19at 22:14; Start 12/31/19 at 22:00; Stop 12/31/19 at 22:10; Status DC Lorazepam (Ativan) 0.5 mg PRN Q6HRS PRN PO ANXIETY / AGITATION Last administered on 12/31/19at 22:14; Start 12/31/19 at 22:00 Lisinopril (Prinivil) 20 mg DAILY PO Last administered on 01/01/20at 08:13; Start 12/31/19 at 22:45 Amlodipine Besylate (Norvasc) 5 mg DAILY PO Last administered on 01/01/20at 08:13; Start 12/31/19 at 22:45 Ferrous Sulfate (Feosol) 325 mg DAILYWBKFT PO Last administered on 01/01/20at 08:12; Start 01/01/20 at 08:00 Pantoprazole Sodium (Protonix) 40 mg DAILYAC PO Last administered on 01/01/20at 08:12; Start 01/01/20 at 07:30 Duloxetine HCl (Cymbalta) 60 mg DAILY PO ; Start 01/01/20 at 09:30; Status UNV Furosemide (Lasix) 40 mg DAILY IVP ; Start 01/01/20 at 09:30; Status UNV Active Scripts Active Levothyroxine Sodium 150 Mcg Tablet 150 Mcg PO DAILY Tizanidine Hcl (Tizanidine HCl) 4 Mg Tablet 4 Mg PO PRN Q4HRS PRN 30 Days Lasix (Furosemide) 40 Mg Tablet 1 Tab PO DAILY 30 Days Reported Clobetasol Propionate 15 Gm Cream..g. 1 Lesly TP DAILY LAST DOSE GIVEN: DATE: TIME: NEXT DOSE DUE: DATE: TIME: Zetia (Ezetimibe) 10 Mg Tablet 10 Mg PO DAILY Cymbalta (Duloxetine Hcl) 30 Mg Capsule.dr 30 Mg PO DAILY LAST DOSE GIVEN: DATE: TIME: NEXT DOSE DUE: DATE: TIME: Metoprolol Tartrate 50 Mg Tablet 50 Mg PO DAILY LAST DOSE GIVEN: DATE: TIME: NEXT DOSE DUE: DATE: TIME: Hydralazine Hcl 50 Mg Tablet 100 Mg PO BID LAST DOSE GIVEN: DATE: TIME: NEXT DOSE DUE: DATE: TIME: Hydrocodone-Acetamin 7.5-325 (Hydrocodone/Acetaminophen) 1 Each Tablet 1 Tab PO PRN Q6HRS PRN [cbd oil tablets] Krill Oil 500 Mg Capsule 500 Mg PO DAILY Probiotic (Lactobacillus Acidophilus) 1 Each Capsule 1 Each PO DAILY Vitamin B-12 (Cyanocobalamin (Vitamin B-12)) 5,000 Mcg Capsule 5,000 Mcg PO DAILY Centrum Adults Tablet (Multivitamin/Iron/Folic Acid) 1 Each Tablet 1 Each PO DAILY Gabapentin 600 Mg Tablet 300 Mg PO TID LAST DOSE GIVEN: DATE: TIME: NEXT DOSE DUE: DATE: TIME: Invokana (Canagliflozin) 300 Mg Tablet 300 Mg PO DAILY LAST DOSE GIVEN: DATE: TIME: NEXT DOSE DUE: DATE: TIME: ALLERGIES Allergies: Coded Allergies: cyclobenzaprine HCl (Verified Allergy, Intermediate, 11/02/18) erythromycin base (Verified Allergy, Intermediate, 11/02/18) fentanyl (Verified Allergy, Intermediate, RASH, 12/28/19) I S O L A T I O N *CONTACT* (Verified Allergy, Unknown, 11/05/18) +MRSA leg wound 11/01/18 labetalol (Verified Adverse Reaction, Intermediate, dizzy, flushing of face, tinnitis, blood pressure bottoming , 11/02/18) ROS Review of Systems 14 point ROS conducted with pertinent positives noted above in hPI PHYSICAL EXAM General: Alert, Oriented X3, Cooperative, mild distress HEENT: Atraumatic, Mucous membr. moist/pink Lungs: Other (bibasilar crackles ) Abdomen: Soft, No tenderness Extremities: Other (trace LE edema, stasis dermatitis of bilateral LE edema ) Neuro: Normal speech, Sensation intact Psych/Mental Status: Mental status NL, Mood NL MUSCULOSKELETAL: Osteoarthritic changes both hands VITALS Vital Signs Vital Signs Date Time Temp Pulse Resp B/P (MAP) Pulse Ox O2 Delivery O2 Flow Rate FiO2 01/01/20 08:50 89 17 196/93 (127) 95 01/01/20 05:46 97.4 Nasal Cannula 2.0 LABS LABS Laboratory Tests Test 12/30/19 09:33 12/30/19 12:13 12/30/19 17:18 12/30/19 20:36 Glucose (Fingerstick) 232 mg/dL (70-99) 229 mg/dL (70-99) 199 mg/dL (70-99) 149 mg/dL (70-99) Test 12/31/19 07:47 12/31/19 09:10 12/31/19 11:59 12/31/19 16:51 Glucose (Fingerstick) 185 mg/dL (70-99) 243 mg/dL (70-99) 199 mg/dL (70-99) White Blood Count 6.7 x10^3/uL (4.0-11.0) Red Blood Count 3.20 x10^6/uL (3.50-5.40) Hemoglobin 9.9 g/dL (12.0-15.5) Hematocrit 30.0 % (36.0-47.0) Mean Corpuscular Volume 94 fL (79-100) Mean Corpuscular Hemoglobin 31 pg (25-35) Mean Corpuscular Hemoglobin Concent 33 g/dL (31-37) Red Cell Distribution Width 13.5 % (11.5-14.5) Platelet Count 125 x10^3/uL (140-400) Neutrophils (%) (Auto) 82 % (31-73) Lymphocytes (%) (Auto) 12 % (24-48) Monocytes (%) (Auto) 6 % (0-9) Eosinophils (%) (Auto) 0 % (0-3) Basophils (%) (Auto) 0 % (0-3) Neutrophils # (Auto) 5.4 x10^3uL (1.8-7.7) Lymphocytes # (Auto) 0.8 x10^3/uL (1.0-4.8) Monocytes # (Auto) 0.4 x10^3/uL (0.0-1.1) Eosinophils # (Auto) 0.0 x10^3/uL (0.0-0.7) Basophils # (Auto) 0.0 x10^3/uL (0.0-0.2) Sodium Level 136 mmol/L (136-145) Potassium Level 3.1 mmol/L (3.5-5.1) Chloride Level 102 mmol/L (98-107) Carbon Dioxide Level 22 mmol/L (21-32) Anion Gap 12 (6-14) Blood Urea Nitrogen 11 mg/dL (7-20) Creatinine 0.8 mg/dL (0.6-1.0) Estimated GFR (Cockcroft-Gault) 70.9 Glucose Level 268 mg/dL (70-99) Calcium Level 8.3 mg/dL (8.5-10.1) Iron Level 16 ug/dL (50-170) Total Iron Binding Capacity 197 ug/dL (250-450) Iron Saturation 8 % (15-34) Test 12/31/19 20:10 01/01/20 04:45 01/01/20 05:43 01/01/20 07:23 Glucose (Fingerstick) 160 mg/dL (70-99) 184 mg/dL (70-99) Stool Occult Blood Negative (NEG) White Blood Count 7.1 x10^3/uL (4.0-11.0) Red Blood Count 3.09 x10^6/uL (3.50-5.40) Hemoglobin 9.6 g/dL (12.0-15.5) Hematocrit 28.6 % (36.0-47.0) Mean Corpuscular Volume 93 fL (79-100) Mean Corpuscular Hemoglobin 31 pg (25-35) Mean Corpuscular Hemoglobin Concent 34 g/dL (31-37) Red Cell Distribution Width 13.4 % (11.5-14.5) Platelet Count 160 x10^3/uL (140-400) Neutrophils (%) (Auto) 80 % (31-73) Lymphocytes (%) (Auto) 11 % (24-48) Monocytes (%) (Auto) 8 % (0-9) Eosinophils (%) (Auto) 0 % (0-3) Basophils (%) (Auto) 0 % (0-3) Neutrophils # (Auto) 5.7 x10^3uL (1.8-7.7) Lymphocytes # (Auto) 0.8 x10^3/uL (1.0-4.8) Monocytes # (Auto) 0.6 x10^3/uL (0.0-1.1) Eosinophils # (Auto) 0.0 x10^3/uL (0.0-0.7) Basophils # (Auto) 0.0 x10^3/uL (0.0-0.2) Sodium Level 139 mmol/L (136-145) Potassium Level 3.3 mmol/L (3.5-5.1) Chloride Level 102 mmol/L (98-107) Carbon Dioxide Level 25 mmol/L (21-32) Anion Gap 12 (6-14) Blood Urea Nitrogen 9 mg/dL (7-20) Creatinine 0.7 mg/dL (0.6-1.0) Estimated GFR (Cockcroft-Gault) 82.7 Glucose Level 193 mg/dL (70-99) Calcium Level 8.2 mg/dL (8.5-10.1) Magnesium Level 1.6 mg/dL (1.8-2.4) ASSESSMENT/PLAN Assessment/Plan 1. Diarrhea; CT abd/pelvic with colitis. 2. Hypertensive urgency; remains elevated. renal duplex 2017 without evidence of stenosis 3. Acute probably diastolic CHF 4. Hyperlipidemia 5. Hypokalemia, hypomagnesemia 6. Anemia, iron deficient Recommendations Agree with diuresis and addition of Norvasc, lisinopril Monitor BP trends and titrate therapy as warranted Replace Mg Outpatient echo to assess LV systolic function Supportive care ELLA KEVIN MD 01/01/20 1505: CARDIAC CONSULT ASSESSMENT/PLAN Assessment/Plan Patient seen, examined, I agree with above. Assessment and plan was formulated with CASHIER. CATIA VAZQUEZ APRN Jan 01, 2020 09:33 ELLA KEVIN MD Jan 01, 2020 15:05
[2020-01-01] MEDS ORDERED: MAGNESIUM SULFATE 2GM 50 ML IV ONE (09:45)
[2020-01-01] MEDS ORDERED: ELECTROLYTE (ICU) PROTOCOL. MC PRN ×2 (09:45)
[2020-01-01] MEDS: OXYMETAZOLINE 0.05% NASAL SPRAY 30ML BOTTLE. NS SCH ×2 (10:00→20:30)
[2020-01-01] MEDS ORDERED: amLODIPine BESYLATE 5 MG TABLET PO ONE (10:30)
[2020-01-01] MEDS ORDERED: FUROSEMIDE 40 MG/4 ML VIAL IVP ONE (11:00)
[2020-01-01] MEDS ORDERED: POTASSIUM CHLORIDE 20 MEQ TABLET.ER. PO ONE (11:15)
[2020-01-01] MEDS: BENZONATATE 100 MG CAPSULE. PO SCH ×3 (11:23→20:29)
[2020-01-01] MEDS: METOCLOPRAMIDE HCL 10 MG/10 ML SOLUTION. PO SCH ×2 (11:30→16:20)
[2020-01-01] MEDS: UREA 20% TP SCH (12:19)
[2020-01-02] VITALS (20 sets, daily range): BP systolic 139–193; BP diastolic 63–100
[2020-01-02] MEDS: tiZANidine 4 MG TABLET. PO PRN ×3 (04:54→22:03)
[2020-01-02] MEDS: LEVOTHYROXINE 150 MCG TABLET PO SCH (04:54)
[2020-01-02] MEDS: NITROGLYCERIN OINT 1 GM PACKET. TP SCH ×3 (04:55→20:49)
[2020-01-02] MEDS: METOPROLOL TARTRATE 5 MG/5 ML VIAL. IV PRN (04:56)
--- NOTE | 2020-01-02 05:25 | NUR ---
Pt is a/o x4, no c/o n/v at this time, pt cont to have chronic back pain for which she takes zaniflex, elevated blood pressure continues to be an issue (Metoprolol IV given twice throughout the night to manage blood pressure), pt continent of bowel and bladder, pt states she is feeling much better this morning, discussed pt's elevated BP, pt verbalized understanding.
[2020-01-02 07:34] LABS: CALCIUM 8.1 mg/dL (8.5-10.1); CREATININE 0.6 mg/dL (0.6-1.0); GFR 98.8; POTASSIUM 3.2 mmol/L (3.5-5.1)
[2020-01-02 07:43] LABS: BASO % 0 % (0-3); EOS # 0.1 x10^3/uL (0.0-0.7); EOS % 2 % (0-3); HEMATOCRIT 31.2 % (36.0-47.0); HEMOGLOBIN 10.5 g/dL (12.0-15.5); LYMPH # 0.9 x10^3/uL (1.0-4.8); LYMPH % 16 % (24-48); MEAN CORPUSCULAR HEMOGLOBIN 31 pg (25-35); MEAN CORPUSCULAR HGB CONC 34 g/dL (31-37); MEAN CORPUSCULAR VOLUME 92 fL (79-100); MONO # 0.5 x10^3/uL (0.0-1.1); MONO % 8 % (0-9); NEUT # 4.2 x10^3uL (1.8-7.7); NEUT % 73 % (31-73); PLATELET COUNT 200 x10^3/uL (140-400); RED BLOOD COUNT 3.39 x10^6/uL (3.50-5.40); RED CELL DISTRIBUTION WIDTH 13.5 % (11.5-14.5); WHITE BLOOD COUNT 5.7 x10^3/uL (4.0-11.0)
[2020-01-02] MEDS: EZETIMIBE 10 MG TABLET PO SCH (07:55)
[2020-01-02] MEDS: METOCLOPRAMIDE HCL 10 MG/10 ML SOLUTION. PO SCH ×3 (07:55→17:07)
[2020-01-02] MEDS: DULoxetine HCL 60 MG CAPSULE.DR PO SCH (07:56)
[2020-01-02] MEDS: FERROUS SULFATE 325 MG TABLET. PO SCH (07:56)
[2020-01-02] MEDS: PANTOPRAZOLE 40 MG TABLET. PO SCH (07:56)
[2020-01-02] MEDS: BUDESONIDE 3 MG CAP.ER.24H. PO SCH (07:56)
[2020-01-02] MEDS: LACTOBACILLUS RHAMNOSUS GG 1 CAPSULE. PO SCH (07:57)
[2020-01-02] MEDS: amLODIPine BESYLATE 5 MG TABLET PO SCH (07:57)
[2020-01-02] MEDS: LISINOPRIL 20 MG TABLET PO SCH (07:58)
[2020-01-02] MEDS: FUROSEMIDE 40 MG TABLET PO SCH (07:58)
[2020-01-02] MEDS: GABAPENTIN 300 MG CAPSULE. PO SCH ×3 (07:58→20:49)
[2020-01-02] MEDS: METOPROLOL TART IMMED RELEASE 50 MG TABLET PO SCH (07:58)
[2020-01-02] MEDS: ENOXAPARIN 40 MG/0.4 ML SYRINGE. SQ SCH ×2 (07:59→20:48)
[2020-01-02] MEDS: INSULIN LISPRO 300 UNITS/3 ML VIAL. SQ SCH ×4 (08:02→20:51)
--- NOTE | 2020-01-02 08:51 | PDOC ---
CARDIO Progress Notes Date & Time Date of Service DATE: 01/02/20 TIME: 08:47 Time of Evaluation 08:47 Subjective Notes No chest pain, SOA, dizziness, diaphoresis, or nausea/vomiting Vitals Vitals Vital Signs Date Time Temp Pulse Resp B/P (MAP) Pulse Ox O2 Delivery O2 Flow Rate FiO2 01/02/20 07:59 82 16 167/90 (115) 95 Room Air 01/02/20 05:00 98.5 01/01/20 05:46 2.0 Weight Weight [ ] Input and Output I.O. Intake and Output 01/02/20 07:00 Intake Total 1080 ml Balance 1080 ml Intake Oral 980 ml IV Total 100 ml # Voids 4 # Bowel Movements 1 Laboratory Labs Laboratory Tests Test 12/31/19 09:10 12/31/19 11:59 12/31/19 16:51 12/31/19 20:10 White Blood Count 6.7 x10^3/uL (4.0-11.0) Red Blood Count 3.20 x10^6/uL (3.50-5.40) Hemoglobin 9.9 g/dL (12.0-15.5) Hematocrit 30.0 % (36.0-47.0) Mean Corpuscular Volume 94 fL (79-100) Mean Corpuscular Hemoglobin 31 pg (25-35) Mean Corpuscular Hemoglobin Concent 33 g/dL (31-37) Red Cell Distribution Width 13.5 % (11.5-14.5) Platelet Count 125 x10^3/uL (140-400) Neutrophils (%) (Auto) 82 % (31-73) Lymphocytes (%) (Auto) 12 % (24-48) Monocytes (%) (Auto) 6 % (0-9) Eosinophils (%) (Auto) 0 % (0-3) Basophils (%) (Auto) 0 % (0-3) Neutrophils # (Auto) 5.4 x10^3uL (1.8-7.7) Lymphocytes # (Auto) 0.8 x10^3/uL (1.0-4.8) Monocytes # (Auto) 0.4 x10^3/uL (0.0-1.1) Eosinophils # (Auto) 0.0 x10^3/uL (0.0-0.7) Basophils # (Auto) 0.0 x10^3/uL (0.0-0.2) Sodium Level 136 mmol/L (136-145) Potassium Level 3.1 mmol/L (3.5-5.1) Chloride Level 102 mmol/L (98-107) Carbon Dioxide Level 22 mmol/L (21-32) Anion Gap 12 (6-14) Blood Urea Nitrogen 11 mg/dL (7-20) Creatinine 0.8 mg/dL (0.6-1.0) Estimated GFR (Cockcroft-Gault) 70.9 Glucose Level 268 mg/dL (70-99) Calcium Level 8.3 mg/dL (8.5-10.1) Iron Level 16 ug/dL (50-170) Total Iron Binding Capacity 197 ug/dL (250-450) Iron Saturation 8 % (15-34) Glucose (Fingerstick) 243 mg/dL (70-99) 199 mg/dL (70-99) 160 mg/dL (70-99) Test 01/01/20 04:45 01/01/20 05:43 01/01/20 07:23 01/01/20 11:59 Stool Occult Blood Negative (NEG) White Blood Count 7.1 x10^3/uL (4.0-11.0) Red Blood Count 3.09 x10^6/uL (3.50-5.40) Hemoglobin 9.6 g/dL (12.0-15.5) Hematocrit 28.6 % (36.0-47.0) Mean Corpuscular Volume 93 fL (79-100) Mean Corpuscular Hemoglobin 31 pg (25-35) Mean Corpuscular Hemoglobin Concent 34 g/dL (31-37) Red Cell Distribution Width 13.4 % (11.5-14.5) Platelet Count 160 x10^3/uL (140-400) Neutrophils (%) (Auto) 80 % (31-73) Lymphocytes (%) (Auto) 11 % (24-48) Monocytes (%) (Auto) 8 % (0-9) Eosinophils (%) (Auto) 0 % (0-3) Basophils (%) (Auto) 0 % (0-3) Neutrophils # (Auto) 5.7 x10^3uL (1.8-7.7) Lymphocytes # (Auto) 0.8 x10^3/uL (1.0-4.8) Monocytes # (Auto) 0.6 x10^3/uL (0.0-1.1) Eosinophils # (Auto) 0.0 x10^3/uL (0.0-0.7) Basophils # (Auto) 0.0 x10^3/uL (0.0-0.2) Sodium Level 139 mmol/L (136-145) Potassium Level 3.3 mmol/L (3.5-5.1) Chloride Level 102 mmol/L (98-107) Carbon Dioxide Level 25 mmol/L (21-32) Anion Gap 12 (6-14) Blood Urea Nitrogen 9 mg/dL (7-20) Creatinine 0.7 mg/dL (0.6-1.0) Estimated GFR (Cockcroft-Gault) 82.7 Glucose Level 193 mg/dL (70-99) Calcium Level 8.2 mg/dL (8.5-10.1) Magnesium Level 1.6 mg/dL (1.8-2.4) Glucose (Fingerstick) 184 mg/dL (70-99) 216 mg/dL (70-99) Test 01/01/20 17:06 01/02/20 05:58 01/02/20 07:36 Glucose (Fingerstick) 262 mg/dL (70-99) 193 mg/dL (70-99) White Blood Count 5.7 x10^3/uL (4.0-11.0) Red Blood Count 3.39 x10^6/uL (3.50-5.40) Hemoglobin 10.5 g/dL (12.0-15.5) Hematocrit 31.2 % (36.0-47.0) Mean Corpuscular Volume 92 fL (79-100) Mean Corpuscular Hemoglobin 31 pg (25-35) Mean Corpuscular Hemoglobin Concent 34 g/dL (31-37) Red Cell Distribution Width 13.5 % (11.5-14.5) Platelet Count 200 x10^3/uL (140-400) Neutrophils (%) (Auto) 73 % (31-73) Lymphocytes (%) (Auto) 16 % (24-48) Monocytes (%) (Auto) 8 % (0-9) Eosinophils (%) (Auto) 2 % (0-3) Basophils (%) (Auto) 0 % (0-3) Neutrophils # (Auto) 4.2 x10^3uL (1.8-7.7) Lymphocytes # (Auto) 0.9 x10^3/uL (1.0-4.8) Monocytes # (Auto) 0.5 x10^3/uL (0.0-1.1) Eosinophils # (Auto) 0.1 x10^3/uL (0.0-0.7) Basophils # (Auto) 0.0 x10^3/uL (0.0-0.2) Sodium Level 138 mmol/L (136-145) Potassium Level 3.2 mmol/L (3.5-5.1) Chloride Level 101 mmol/L (98-107) Carbon Dioxide Level 26 mmol/L (21-32) Anion Gap 11 (6-14) Blood Urea Nitrogen 10 mg/dL (7-20) Creatinine 0.6 mg/dL (0.6-1.0) Estimated GFR (Cockcroft-Gault) 98.8 Glucose Level 174 mg/dL (70-99) Calcium Level 8.1 mg/dL (8.5-10.1) Microbiology Micro Microbiology 12/28/19 Urine Culture - Final, Complete 12/28/19 Blood Culture - Preliminary, Resulted NO GROWTH AFTER 4 DAYS... Physical Exams HEENT: Neck Supple W Full Motion Lungs: Other (diminished bases) Heart: RRR Abdomen: Soft N/T, Other (obese) Extremities: Other (chronic vensous stasis changes. Trace bilateral LE edema ) Neurology: alert, oriented, follow commands Assessment Assessment 1. Diarrhea; CT abd/pelvic with colitis. 2. Hypertensive urgency; better controlled. renal duplex 2017 without evidence of stenosis 3. Acute probably diastolic CHF; improved s/p IV diuresis 4. Hyperlipidemia 5. Hypokalemia, hypomagnesemia 6. Anemia, iron deficient Recommendations Oral Lasix therapy Monitor BP trends; increase lisinopril as warranted Encouraged home BP monitoring. Is to reports if SBP consistently > 160 Echo to assess LV systolic function Supportive care Follow up with Dr. Davidson as scheduled. CATIA VAZQUEZ APRN Jan 02, 2020 08:51
[2020-01-02] MEDS: UREA 20% TP SCH (09:00)
[2020-01-02] MEDS: CLOBETASOL EMOLLIENT 0.05% TOPICAL CREAM 15GM TUBE. TP SCH ×2 (09:00→20:50)
[2020-01-02] MEDS: BENZONATATE 100 MG CAPSULE. PO SCH ×3 (09:00→20:48)
[2020-01-02] MEDS: OXYMETAZOLINE 0.05% NASAL SPRAY 30ML BOTTLE. NS SCH ×2 (09:00→20:50)
--- NOTE | 2020-01-02 10:21 | PN ---
DATE: 01/02/2020 ICU BED NUMBER: 4. SUBJECTIVE: The patient says she is feeling much better this morning. She looks a lot healthier. OBJECTIVE: VITAL SIGNS: Blood pressure still was vacillating between 140 to 170 systolic. The patient has been seen by Cardiology and they made timely suggestions. GENERAL: The patient otherwise says she is feeling much better overall, has a better affect overall. LUNGS: Diminished, but clear. CARDIOVASCULAR: Regular sinus rhythm. ABDOMEN: Protuberant, soft, nontender, but having bowel movements. EXTREMITIES: No clubbing, cyanosis, or edema. The patient has hyperpigmentation to the legs, told her to get those legs elevated at least 2 hours a day above the level of the heart. Continue with PT, OT and make further evaluation on her per those results there. She has some generalized weakness, but other than that seems to be making excellent progress for her situation there. IMPRESSION: Hypertensive urgency, acute diastolic congestive heart failure, improved with Lasix, hyperlipidemia, hypokalemia, iron deficiency anemia, diarrhea, colitis seems to be resolving. PLAN: Continue to make further evaluation on her. She will be set up to see Dr. Davidson as an outpatient if she can tolerate walking and also she needs to follow up with Gastroenterology as well for this colitis situation. It seems to be resolving. Also, urinary tract infection with the beta strep group B, which seems to be responding to the IV antibiotic therapy. PÉREZ MCCANN MD DR: [email or web address] JOB#: [id number] / [id number]
[2020-01-02] MEDS ORDERED: POTASSIUM CHLORIDE 20 MEQ TABLET.ER. PO ONE (11:15)
--- NOTE | 2020-01-02 17:10 | CARD ---
MR#: [id number] Date of Study: 01/02/2020 Ordering Physician: PÉREZ MCCANN, Referring Physician: PÉREZ MCCANN, Tech: Minda Mei STEPHENIE APPROVED REPORT EXAM: Two-dimensional and M-mode echocardiogram with Doppler and color Doppler. Other Information Quality : Good INDICATION Congestive Heart Failure 2D DIMENSIONS RVDd3.7 (2.9-3.5cm)Left Atrium(2D)4.5 (1.6-4.0cm) IVSd1.3 (0.7-1.1cm)Aortic Root(2D)3.0 (2.0-3.7cm) LVDd5.1 (3.9-5.9cm)LVOT Diameter2.3 (1.8-2.4cm) PWd1.2 (0.7-1.1cm)LVDs3.1 (2.5-4.0cm) FS (%) 38.8 %SV85.4 ml LVEF(%)60.0 (>50%) Aortic Valve AoV Peak Maciel.130.4cm/sAoV VTI28.2cm AO Peak GR.6.8mmHgAO Mean GR.4mmHg WALE (VTI)3.99cm2 Mitral Valve MV E Uigqtpyo568.9cm/sMV DECEL SFDP131ld MV A Bdirtumr13.3cm/sE/A Ratio1.0 Tricuspid Valve TR P. Uvtxwjdm796ss/sRAP NGOVLEGF9hgJn TR Peak Gr.61txUwPCLG35udNw LEFT VENTRICLE The left ventricle is normal size. There is mild concentric left ventricular hypertrophy. The left ve ntricular systolic function is normal and the ejection fraction is within normal range. The Ejection Fraction is 55-60%. There is normal LV segmental wall motion. RIGHT VENTRICLE The right ventricle is normal size. The right ventricular systolic function is normal. ATRIA The left atrium is mildly dilated. The right atrium size is normal. The interatrial septum is intact with no evidence for an atrial septal defect or patent foramen ovale as noted on 2-D or Doppler imagi ng. AORTIC VALVE The aortic valve is calcified but opens well. Doppler and Color Flow revealed no significant aortic r egurgitation. There is no significant aortic valvular stenosis. MITRAL VALVE The mitral valve is calcified but opens well. Posterior mitral annular calcification is mild. There i s no evidence of mitral valve prolapse. There is no mitral valve stenosis. Doppler and Color Flow rev ealed trace mitral valve regurgitation. TRICUSPID VALVE The tricuspid valve is normal in structure and function. Doppler and Color Flow revealed no tricuspid valve regurgitation noted. There is no tricuspid valve stenosis. PULMONIC VALVE The pulmonic valve is not well visualized. Doppler and Color Flow revealed no pulmonic valvular regur gitation. There is no pulmonic valvular stenosis. GREAT VESSELS The aortic root is normal in size. The ascending aorta is normal in size. The IVC is normal in size a nd collapses >50% with inspiration. PERICARDIAL EFFUSION There is no evidence of significant pericardial effusion. Critical Notification Critical Value: No <Conclusion> The left ventricle is normal size. The left ventricular systolic function is normal and the ejection fraction is within normal range. The Ejection Fraction is 55-60%. There is mild concentric left ventricular hypertrophy. Doppler and Color Flow revealed no significant aortic regurgitation. There is no significant aortic valvular stenosis. Doppler and Color Flow revealed trace mitral valve regurgitation. Doppler and Color Flow revealed no tricuspid valve regurgitation noted. Signed by : Malcom Major MD Electronically Approved : 01/02/2020 17:10:07
[2020-01-02 19:00] LABS: THYROID STIM HORMONE (TSH) 2.46 uIU/mL (0.358-3.740)
--- NOTE | 2020-01-02 19:31 | NUR ---
Called Dr. Muñoz for continued elevated BP. new orders received.
[2020-01-02] MEDS: METOPROLOL SUCC 24HR ER 50 MG TAB.ER.24H. PO SCH (20:49)
[2020-01-02] MEDS ORDERED: cloNIDine TTS-2 1 PATCH PATCH TD SCH (21:00)
[2020-01-03] VITALS (13 sets, daily range): BP systolic 143–198; BP diastolic 62–97
[2020-01-03] MEDS: METOPROLOL TARTRATE 5 MG/5 ML VIAL. IV PRN (03:55)
[2020-01-03] MEDS: tiZANidine 4 MG TABLET. PO PRN ×2 (03:58→08:02)
--- NOTE | 2020-01-03 04:02 | NUR ---
Pt's BP elevated to 180/81 this am. PRN Metoprolol IV given.
[2020-01-03] MEDS: NITROGLYCERIN OINT 1 GM PACKET. TP SCH (05:35)
[2020-01-03] MEDS: LEVOTHYROXINE 150 MCG TABLET PO SCH (05:35)
[2020-01-03] MEDS: FERROUS SULFATE 325 MG TABLET. PO SCH (07:53)
[2020-01-03] MEDS: METOCLOPRAMIDE HCL 10 MG/10 ML SOLUTION. PO SCH ×2 (07:53→12:07)
[2020-01-03] MEDS: EZETIMIBE 10 MG TABLET PO SCH (07:53)
[2020-01-03] MEDS: PANTOPRAZOLE 40 MG TABLET. PO SCH (07:53)
[2020-01-03] MEDS: LACTOBACILLUS RHAMNOSUS GG 1 CAPSULE. PO SCH (07:53)
[2020-01-03] MEDS: FUROSEMIDE 40 MG TABLET PO SCH (07:54)
[2020-01-03] MEDS: LISINOPRIL 20 MG TABLET PO SCH (07:54)
[2020-01-03] MEDS: DULoxetine HCL 60 MG CAPSULE.DR PO SCH (07:54)
[2020-01-03] MEDS: amLODIPine BESYLATE 5 MG TABLET PO SCH (07:54)
[2020-01-03] MEDS: BUDESONIDE 3 MG CAP.ER.24H. PO SCH (07:55)
[2020-01-03] MEDS: GABAPENTIN 300 MG CAPSULE. PO SCH ×2 (07:55→14:22)
[2020-01-03] MEDS: METOPROLOL SUCC 24HR ER 50 MG TAB.ER.24H. PO SCH (07:55)
[2020-01-03] MEDS: ENOXAPARIN 40 MG/0.4 ML SYRINGE. SQ SCH (07:56)
[2020-01-03] MEDS: INSULIN LISPRO 300 UNITS/3 ML VIAL. SQ SCH ×2 (07:57→12:11)
[2020-01-03] MEDS: UREA 20% TP SCH (09:00)
[2020-01-03] MEDS: OXYMETAZOLINE 0.05% NASAL SPRAY 30ML BOTTLE. NS SCH (09:00)
[2020-01-03] MEDS: CLOBETASOL EMOLLIENT 0.05% TOPICAL CREAM 15GM TUBE. TP SCH (09:00)
[2020-01-03] MEDS: BENZONATATE 100 MG CAPSULE. PO SCH (09:00)
[2020-01-03] MEDS ORDERED: LISINOPRIL 20 MG TABLET PO ONE ×2 (11:00→21:00)
[2020-01-03] MEDS ORDERED: ACET325T9 PO (13:53)
[2020-01-03] MEDS ORDERED: BUDE3CAP2 PO (13:53)
[2020-01-03] MEDS ORDERED: CEFP100T PO (13:53)
[2020-01-03] MEDS ORDERED: UREA85CR TP (13:53)
[2020-01-03] MEDS ORDERED: AMLO10TA8 PO (13:53)
[2020-01-03] MEDS ORDERED: DULO60CA98 PO (13:53)
[2020-01-03] MEDS ORDERED: BENZ-8 PO (13:53)
[2020-01-03] MEDS ORDERED: CLON1PAT2 TD (13:53)
[2020-01-03] MEDS ORDERED: OXYM-27 NS (13:53)
[2020-01-03] MEDS ORDERED: NITR1OIN TP (13:53)
[2020-01-03] MEDS ORDERED: LISI40TA PO (13:53)
[2020-01-03] MEDS ORDERED: FERR325T72 PO (13:53)
[2020-01-03] MEDS ORDERED: BISA10SU4 PR (13:53)
[2020-01-03] MEDS ORDERED: METO10SO PO (13:53)
[2020-01-03] MEDS ORDERED: PANT40TA3 PO (14:28)
--- NOTE | 2020-01-03 14:52 | NUR ---
Discharge Note: [facility] Discharge instructions and discharge home medications reviewed with Patient and a copy given. Extensively reviewed new medications and educated on monitoring blood pressure 3x daily and keeping daily log, follow up with Dr Muñoz. All questions have been answered and understanding verbalized. Told patient to not hesitate to call nurses station with questions. all belongings taken with patient at discharge. Discontinued IV line. Patient discharged to Home or Self Care. Wheeled pt out to 's vehicle and assisted into car.
--- NOTE | 2020-01-03 19:19 | DS ---
DATE OF DISCHARGE: 01/03/2020 HOSPITAL COURSE: A 69-year-old female came in through the Emergency Room feeling weak, tired, running a fever, also had diarrhea, nausea and urinary frequency. The patient had a temperature up to 102. Her white count was over 20,000. The patient was found to have a bladder infection as well as colitis and as a result of this, the patient was admitted to the hospital, obviously for sepsis, IV antibiotic therapy and further evaluation on her as indicated. The patient made good progress with IV antibiotic therapy. Ejection fraction 55-60%. The patient also had significant cellulitis to both her legs with stasis dermatitis and infection with the antibiotics, covering both the urinary tract infection of Streptococcus and stasis dermatitis as well. She was placed clobetasol for the latter. The patient also had problems with essential hypertension, anemia of chronic disease, hypokalemia, placed on electrolyte replacement. The patient was a diabetic as well. Her last hemoglobin was 10.5 and 31, white count 5.7. The patient's sugars ran anywhere from the 150s-200s. The patient's potassium will be rechecked as an outpatient, and she had been put on an electrolyte replacement. The patient's cholesterol was 199, LDL 124, HDL was good at 38. The patient's magnesium was low at 1.6, placed on replacement for that. The patient was COVID-19 influenza negative. Stool hemoccult negative. The patient was also noted to be in congestive heart failure and we placed her on IV Lasix. Cardiology was also consulted on her. The patient's blood pressure also became a significant problem. We had to change her back to her long-acting beta erin. The patient had a renal duplex in 2018 without evidence of stenosis. The patient made good progress. She has been placed on budesonide for her colitis. ASSESSMENT: Sepsis, urinary tract infection with beta strep group B, acute on top of chronic diastolic heart failure, hypertensive urgency, acute respiratory distress, hyperlipidemia, hypokalemia, hypomagnesemia, iron deficiency anemia. The patient continue with clobetasol on her legs as well as wraps and help her with her venous stasis. The patient made excellent progress during the rest of her hospitalization and was discharged home for followup as an outpatient. The patient was discharged home. See MRAD. Diabetic diet. Home medications as indicated. PÉREZ MCCANN MD DR: LYDIA/lashay JOB#: [id number] / [id number]
[2020-01-04] MEDS ORDERED: LISINOPRIL 20 MG TABLET PO SCH (09:00)
--- NOTE | 2020-01-06 11:45 | PN ---
DATE: 01/01/2020 SUBJECTIVE: A 69-year-old female in with sepsis. In that regard seems to be doing better. The patient is very depressed, weakened. The patient's hypertension still remains a problem, although it has gone down from 140 back up to 180 despite the use of nitro paste and Norvasc and hydralazine and metoprolol. Cardiology review her on that. Her x-ray yesterday showed the possibility of some fluid accumulation, possible congestive heart failure. We will go ahead and give her additional Lasix IV as we did last night to diurese her ____ more accurate and weight daily. She has not been weighed yet today, but she is diuresed off quite a bit. Most of all, she is very depressed appearing, we have to increase her Cymbalta. OBJECTIVE: VITAL SIGNS: Blood pressure up to 196/93, respirations 17, pulse 90, afebrile presently. GENERAL: The patient is alert, depressed, somewhat tearful. She seems fairly hopeless ____ psychiatric consult along with Cardiology consult. HEENT: The patient's head was atraumatic and normocephalic. LUNGS: Diminished in the bases, but no rales or rhonchi noted. CARDIOVASCULAR: Regular sinus rhythm. ABDOMEN: Soft, protuberant, did not have any bowel movement. EXTREMITIES: No clubbing or cyanosis, no edema, really has hyperpigmentation in the lower extremities as noted before, but they are cooler and improved in appearance. LABORATORY DATA: Her labs showed a slightly low potassium of 3.3, low magnesium of 1.6, both put on electrolyte replacement. Blood sugars down in the 180s. We will take her off the Cleocin and she is afebrile. White count down to 7000, hemoglobin 9.6, hematocrit 28, iron deficient and we will go ahead and continue giving her additional ferrous sulfate. COVID-19 was negative. IMPRESSION: Sepsis, urinary tract infection, group B Streptococcus pyogenes, inguinal adenopathy probably secondary to the cellulitis in her legs, type 2 diabetes, hypokalemia, hypomagnesemia, hypertensive urgency, acute on top of chronic diastolic heart failure, morbid obesity, and depression. We will increase her Cymbalta there and consult with Psychiatry to see if they can add anything else to help this patient to feel a little better. She has been through quite a bit emotionally as well as medically, but she has diarrhea. She has improved except for this blood pressure ____ Cardiology review that. We will go ahead and get an echo on her as well and we will consult as noted, Psychiatry for her severe depression, take her off the Cleocin as her abdomen is soft and nontender and discontinue on the Rocephin. C. difficile was negative. Occult negative for blood, urine, serology as indicated there. We will go ahead and put her on low sodium, fluid restriction and make other adjustments. She is also on lisinopril for heart failure, ____ beta-erin, calcium channel erin ____ Cardiology has to say about her hypertensive urgency. She is also on 1-inch of nitro paste. We will continue to monitor carefully here in the ICU and make further evaluation on her as indicated. PÉREZ MCCANN MD DR: LYDIA/lashay JOB#: [id number] / [id number]
== END 2020-01-03 14:52 | disposition home or self-care (01) | DRG 871 ==
LOC: ER 12:26 → ICU 17:23
PROVIDERS: ADMIT Family Medicine; ATTEND Family Medicine
DX: A41.9 Sepsis, unspecified organism (principal); I50.33 Acute on chronic diastolic (congestive) heart failure; L03.115 Cellulitis of right lower limb; L03.116 Cellulitis of left lower limb; Z20.828 Contact with and (suspected) exposure to other viral communicable diseases; B95.4 Other streptococcus as the cause of diseases classified elsewhere; D25.9 Leiomyoma of uterus, unspecified; D50.9 Iron deficiency anemia, unspecified; D63.8 Anemia in other chronic diseases classified elsewhere; E03.9 Hypothyroidism, unspecified; E11.9 Type 2 diabetes mellitus without complications; E66.9 Obesity, unspecified; E78.00 Pure hypercholesterolemia, unspecified; E78.5 Hyperlipidemia, unspecified; E83.42 Hypomagnesemia; E87.6 Hypokalemia; G89.29 Other chronic pain; I11.0 Hypertensive heart disease with heart failure; I16.0 Hypertensive urgency; I87.2 Venous insufficiency (chronic) (peripheral); I87.8 Other specified disorders of veins; K52.9 Noninfective gastroenteritis and colitis, unspecified; M19.90 Unspecified osteoarthritis, unspecified site; L30.9 Dermatitis, unspecified; N83.201 Unspecified ovarian cyst, right side; Z82.49 Family history of ischemic heart disease and other diseases of the circulatory system; Z83.3 Family history of diabetes mellitus; Z86.14 Personal history of Methicillin resistant Staphylococcus aureus infection; Z88.8 Allergy status to other drugs, medicaments and biological substances; Z68.36 Body mass index [BMI] 36.0-36.9, adult
CPT/HCPCS: 36415; 71045; 74177; 80048; 80053; 80061; 81001; 82274; 82550; 82947; 83540; 83550; 83605; 83735; 84443; 84484; 85007; 85025; 87040; 87077; 87086; 87804; 93005; 93306; 96365; 96366; 96367; 96375; J0696; J1650; J1815; J1885; J1940; J2270; J2405; J3370; J3475; J3490; J7030; J7040; J8597; Q9967; 97110; 97116; 97530; 97535; 99285-25; U0003-CS